=== PATIENT | female | born 1990 | race African-American/Black ===

== ENCOUNTER 2019-09-14 19:44 | Emergency (ER) | payer SELFPAY, OTHER ==
[2019-09-14 22:31] LABS: Protime INR 0.98
[2019-09-14 22:44] LABS: Hematocrit 27.5 % (36.0-45.0); RBC Red Blood Cell Count 4.45 M/uL (3.86-4.86)
[2019-09-14 22:51] LABS: ALT/SGPT 23 U/L (12-78); AST/SGOT 24 U/L (15-37); Albumin 3.7 g/dL (3.4-5.0); Alkaline Phosphatase 101 U/L (45-117); BUN Blood Urea Nitrogen 8 mg/dL (7-18); Bicarbonate 24 mmol/L (21-32); Bilirubin Direct < 0.1 mg/dL (0-0.2); Bilirubin Total 0.4 mg/dL (0.2-1.0); Glucose Level 88 mg/dL (74-106); NT PRO-BNP 43 pg/mL (<125); Potassium 3.5 mmol/L (3.5-5.1); Protein, Total 8.6 g/dL (6.4-8.2); Sodium Level 141 mmol/L (136-145)
[2019-09-15 01:12] LABS: Anisocytosis 2+; Blood Morphology Comment NOTED (NOT SEEN); Hypochromasia 2+; Ovalocytes 2+; Platelet Estimate ADEQ
--- NOTE | 2019-09-15 08:26 | RAD REPORT ---
EXAM DESCRIPTION: RAD - Chest Single View - 09/14/2019 11:01 pm CLINICAL HISTORY: CHEST PAIN Chest pain. COMPARISON: CHEST PA AND LAT 2 VIEW dated 01/25/2011 FINDINGS: Portable technique limits examination quality. The lungs are grossly clear. The heart is normal in size. No displaced fractures. IMPRESSION: No acute intrathoracic process suspected.
--- NOTE | 2019-09-15 10:33 | ER ---
Nurse's Notes [facility] Name: Pauline Martin Age: 29 yrs Sex: Female : 1990 Arrival Date: 09/14/2019 Time: 19:50 Bed 15 Private MD: Diagnosis: Chest pain, unspecified Presentation: 09/13 19:56 Chief complaint: Patient states: Chest pressure and tightness since this afternoon. ca1 Denies cough. Denies fever. Reports a little SOB. Denies nausea and abdl pain. Reports diarrhea. States, "my co-worker tested positive so I want to be tested". Coronavirus screen: Patient denies a cough. Patient reports shortness of breath or difficulty breathing. Patient denies measured and/or subjective temperature greater than 100.4F prior to today's visit. Patient denies travel on a cruise ship or to a country the [facility] currently lists as an affected area. Patient reports contact with known and/or suspected case of COVID-19. Co-worker tested positive Put mask on. Instructed to keep mask at all times and to keep 6ft away from other people in the lobby. Pt verbalized understanding to instructions. Ebola Screen: Patient negative for fever greater than or equal to 101.5 degrees Fahrenheit, and additional compatible Ebola Virus Disease symptoms Patient denies exposure to infectious person. Patient denies travel to an Ebola-affected area in the 21 days before illness onset. No symptoms or risks identified at this time. Initial Sepsis Screen: Does the patient meet any 2 criteria? No. Patient's initial sepsis screen is negative. Does the patient have a suspected source of infection? No. Patient's initial sepsis screen is negative. Risk Assessment: Do you want to hurt yourself or someone else? Patient reports no desire to harm self or others. Onset of symptoms was September 14, 2019. 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 - Social history:: Smoking status: Patient denies any tobacco usage or history of. Screenin:51 Abuse screen: Denies threats or abuse. Nutritional screening: No deficits noted. jd3 Tuberculosis screening: No symptoms or risk factors identified. Fall Risk Ambulatory Aid- None/Bed Rest/Nurse Assist (0 pts). Gait- Normal/Bed Rest/Wheelchair (0 pts) Mental Status- Oriented to own ability (0 pts). Total Alarcon Fall Scale indicates No Risk (0-24 pts). Assessment: 21:15 General: Appears in no apparent distress. uncomfortable, Behavior is calm, cooperative, jd3 appropriate for age. Pain: Complains of pain in chest Pain does not radiate. Quality of pain is described as pressure, Pain began gradually. Neuro: Level of Consciousness is awake, alert, obeys commands, Oriented to person, place, time, situation. Cardiovascular: Reports chest pressure Capillary refill < 3 seconds Patient's skin is warm and dry. Rhythm is regular. Respiratory: Reports shortness of breath at rest Airway is patent Respiratory effort is even, unlabored, Respiratory pattern is regular, symmetrical, Denies cough. GI: No signs and/or symptoms were reported involving the gastrointestinal system. : No signs and/or symptoms were reported regarding the genitourinary system. EENT: No signs and/or symptoms were reported regarding the EENT system. Derm: Skin is intact, Skin is dry, Skin is normal, Skin temperature is warm. Musculoskeletal: Circulation, motion, and sensation intact. Range of motion: intact in all extremities. 22:00 Reassessment: Patient appears in no apparent distress at this time. No changes from jd3 previously documented assessment. Patient and/or family updated on plan of care and expected duration. Pain level reassessed. Patient is alert, oriented x 3, equal unlabored respirations, skin warm/dry/pink. 23:08 Reassessment: Patient appears in no apparent distress at this time. No changes from jd3 previously documented assessment. Patient and/or family updated on plan of care and expected duration. Pain level reassessed. Patient is alert, oriented x 3, equal unlabored respirations, skin warm/dry/pink. 09/14 01:00 Reassessment: Patient appears in no apparent distress at this time. Patient and/or [facility] family updated on plan of care and expected duration. Pain level reassessed. Patient is alert, oriented x 3, equal unlabored respirations, skin warm/dry/pink. awaiting disposition. 01:37 Reassessment: Patient appears in no apparent distress at this time. Patient and/or jd3 family updated on plan of care and expected duration. Pain level reassessed. Patient is alert, oriented x 3, equal unlabored respirations, skin warm/dry/pink. Patient states feeling better. Vital Signs: 09/13 19:56 BP 123 / 81; Pulse 79; Resp 16 S; Temp 97.4(O); Pulse Ox 100% on R/A; Weight 86.18 kg ca1 (R); Height 5 ft. 4 in. (162.56 cm) (R); Pain 0/10; 23:08 BP 133 / 94; Pulse 75; Resp 21 S; Pulse Ox 100% on R/A; jd3 23:51 BP 124 / 91; Pulse 71; Resp 20 S; Pulse Ox 100% on R/A; jd3 09/14 01:00 BP 121 / 91; Pulse 73; Resp 20 S; Pulse Ox 100% on R/A; jd3 01:37 BP 117 / 90; Pulse 70; Resp 16 S; Pulse Ox 100% on R/A; jd3 09/13 19:56 Body Mass Index 32.61 (86.18 kg, 162.56 cm) ca1 ED Course: 09/13 19:50 Patient arrived in ED. ag3 19:59 Triage completed. ca1 20:00 Arm band placed on right wrist. ca1 21:13 Renzo Diaz RN is Primary Nurse. jd3 21:13 Mann Grimaldo PA is PHCP. [facility] 21:13 Cesar Dinh MD is Attending Physician. jm 21:30 Missed attempt(s): 20 gauge in right antecubital area. Bleeding controlled, band aid jd3 applied, catheter tip intact. 23:51 Patient has correct armband on for positive identification. Bed in low position. Call jd3 light in reach. Side rails up X 1. Adult w/ patient. ekg monitor tech on. Pulse ox on. NIBP on. 23:51 Patient maintains SpO2 saturation greater than 95% on room air. jd3 09/14 01:38 No provider procedures requiring assistance completed. Patient did not have IV access jd3 during this emergency room visit. Administered Medications: No medications were administered Outcome: 01:03 Discharge ordered by . june 01:38 Discharged to home ambulatory, with family. jlyndon 01:38 Condition: stable 01:38 Discharge instructions given to patient, family, Instructed on discharge instructions, follow up and referral plans. Demonstrated understanding of instructions, follow-up care. 01:38 Patient left the ED. jd3 Addendum: 09/17/2019 11:53 Addendum: Other attempted to contact pt regarding negative COVID-19 swab results. d m5 Received message that number has been changed or disconnected. Will attempt work number provided. 11:55 Addendum: Other Unable to reach pt with work number provided. d m5 Signatures: Kay Caldwell, RN RN dm5 Mann Grimaldo PA PA jmm Davies, Jonathon, RN RN jd3 Amada Heart3 Mahnaz Rosenberg RN RN ca1 Corrections: (The following items were deleted from the chart) 09/13 20:10 19:56 Pulse 79bpm; Resp 16bpm; Spontaneous; Pulse Ox 100% RA; Temp 97.4F Oral; 86.18 kg ca1 Reported; Height 5 ft. 4 in. Reported; BMI: 32.6; Pain 0/10; ca1 20:15 19:56 Coronavirus screen: Patient denies a cough. Patient reports shortness of breath ca1 or difficulty breathing. Patient denies measured and/or subjective temperature greater than 100.4F prior to today's visit. Patient denies travel on a cruise ship or to a country the [facility] currently lists as an affected area. Patient reports contact with known and/or suspected case of COVID-19. Co-worker tested positive ca1
--- NOTE | 2019-09-15 10:33 | EDPHYS ---
Physician Documentation [facility] Name: Pauline Martin Age: 29 yrs Sex: Female : 1990 Arrival Date: 09/14/2019 Time: 19:50 Bed 15 Private MD: ED Physician Cesar Dinh HPI: 09/13 21:14 This 29 yrs old Female presents to ER via Ambulatory with complaints of Chest Tightness.[facility] 21:14 The patient or guardian reports chest pain that is located primarily in the anterior [facility] chest wall, right. The pain does not radiate. Associated signs and symptoms: Pertinent positives: shortness of breath. The chest pain is described as a pressure. Duration: The patient or guardian reports a single episode, that is still ongoing, but improving. Modifying factors: The symptoms are alleviated by nothing. the symptoms are aggravated by nothing. This is a 29 year old female with no chronic medical conditions that presents to the ED with complaints of right sided chest pain beginning earlier today. Also complains of shortness of breath, denies fever. . 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 - Social history:: Smoking status: Patient denies any tobacco usage or history of. ROS: 21:14 Constitutional: Negative for fever, chills, and weight loss. [facility] 21:14 Constitutional: Positive for 21:14 Cardiovascular: Positive for chest pain. 21:14 Respiratory: Positive for shortness of breath. 21:14 All other systems are negative. 21:14 All other systems are negative. Exam: 21:14 Constitutional: This is a well developed, well nourished patient who is awake, alert, jmm and in no acute distress. Head/Face: atraumatic. Eyes: EOMI, no conjunctival erythema appreciated ENT: Moist Mucus Membranes Neck: Trachea midline, Supple Chest/axilla: Normal chest wall appearance and motion. Cardiovascular: Regular rate and rhythm. No edema appreciated Respiratory: Normal respirations, no respiratory distress appreciated Abdomen/GI: Non distended, soft Back: Normal ROM Skin: General appearance color normal MS/ Extremity: Moves all extremities, no obvious deformities appreciated, no edema noted to the lower extremities Neuro: Awake and alert, normal gait Psych: Behavior is normal, Mood is normal, Patient is cooperative and pleasant 21:14 Respiratory: the patient does not display signs of respiratory distress, Respirations: normal, Breath sounds: are clear throughout. Vital Signs: 19:56 BP 123 / 81; Pulse 79; Resp 16 S; Temp 97.4(O); Pulse Ox 100% on R/A; Weight 86.18 kg ca1 (R); Height 5 ft. 4 in. (162.56 cm) (R); Pain 0/10; 23:08 BP 133 / 94; Pulse 75; Resp 21 S; Pulse Ox 100% on R/A; jd3 23:51 BP 124 / 91; Pulse 71; Resp 20 S; Pulse Ox 100% on R/A; jd3 09/14 01:00 BP 121 / 91; Pulse 73; Resp 20 S; Pulse Ox 100% on R/A; jd3 01:37 BP 117 / 90; Pulse 70; Resp 16 S; Pulse Ox 100% on R/A; jd3 09/13 19:56 Body Mass Index 32.61 (86.18 kg, 162.56 cm) ca1 MDM: 09/13 21:14 Patient medically screened. [facility] 09/14 01:02 Data reviewed: vital signs, nurses notes, lab test result(s), EKG, radiologic studies, [facility] plain films. ED course: Heart score = 1. D-Dimer negative. Patient is advised to follow up with pcp and otherwise given strict return precautions. Patient understood and agrees with the plan of care. . 09/14 01:05 Order name: Basic Metabolic Panel; Complete Time: 01:15 [facility] 09/14 01:05 Order name: Liver (Hepatic) Function; Complete Time: :15 [facility] 09/14 01:05 Order name: NT PRO-BNP; Complete Time: :15 [facility] 09/14 01:05 Order name: Magnesium; Complete Time: 01:15 [facility] 09/14 01:05 Order name: CBC with Automated Diff; Complete Time: 01:15 [facility] 09/13 20:01 Order name: EKG - Nurse/Tech; Complete Time: 20:[address] [facility] 09/13 21:14 Order name: Cardiac monitoring; Complete Time: 21:39 [facility] 09/13 21:14 Order name: Labs collected and sent; Complete Time: 22:11 [facility] 09/13 21:14 Order name: O2 Per Protocol; Complete Time: 21:39 [facility] 09/13 21:14 Order name: O2 Sat Monitoring; Complete Time: 21:39 [facility] 09/14 01:05 Order name: Protime (+INR); Complete Time: 01:15 [facility] 09/14 01:05 Order name: D-Dimer; Complete Time: 01:15 [facility] 09/14 01:12 Order name: Manual Differential; Complete Time: 01:15 [facility] Administered Medications: No medications were administered Disposition: 06:28 Co-signature as Attending Physician, Cesar Dinh MD I agree with the assessment and mike plan of care. Disposition: 09/15/19 01:03 Discharged to Home. Impression: Chest pain, unspecified. - Condition is Stable. - Discharge Instructions: Nonspecific Chest Pain. - Medication Reconciliation Form, Thank You Letter, Antibiotic Education, Prescription Opioid Use form. - Follow up: Private Physician; When: 2 - 3 days; Reason: Recheck today's complaints, Continuance of care, Re-evaluation by your physician. Signatures: Dispatcher [employer] Cesar Mata MD MD cha Mickail, Joel, PA PA jmm Davies, Jonathon, RN RN jMahnaz Menjivar RN RN ca1 Corrections: (The following items were deleted from the chart) 01:38 01:03 09/15/2019 01:03 Discharged to Home. Impression: Chest pain, unspecified. jd3 Condition is Stable. Forms are Medication Reconciliation Form, Thank You Letter, Antibiotic Education, Prescription Opioid Use. Follow up: Private Physician; When: 2 - 3 days; Reason: Recheck today's complaints, Continuance of care, Re-evaluation by your physician. [facility]
--- NOTE | 2019-09-15 12:24 | EKG ---
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
[2019-09-15 14:54] VITALS: TEMP 97.4; O2SAT 100
[2019-09-15 15:05] VITALS: BP 117/90
== END 2019-09-15 01:38 | disposition home or self-care (01) ==
LOC: ER 19:44
DX: R07.9 Chest pain, unspecified (principal)
CPT/HCPCS: 36415; 71045; 80048; 80076; 83735; 83880; 85025; 85379; 85610; 93005; 99284; U0001

== ENCOUNTER 2020-01-10 22:37 | Emergency (ER) | payer SELFPAY, OTHER ==
[2020-01-10 23:27] LABS: Urine Blood 2+ (NEG); Urine Glucose NEGATIVE (NEG); Urine Protein 1+ (NEG); Urine Specific Gravity >1.030 (1.005-1.030); Urine pH 6.5 (5.0-7.0)
[2020-01-10 23:30] LABS: Urine Bacteria <20 /HPF (<20); Urine Culture Reflex Order NOT NEEDED
--- NOTE | 2020-01-10 23:55 | EDPHYS ---
Physician Documentation [facility] Name: Pauline Martin Age: 30 yrs Sex: Female : 1990 Arrival Date: 01/10/2020 Time: 22:40 Bed 18 Private MD: ED Physician Jake Youssef HPI: 01/09 23:49 This 30 yrs old Black Female presents to ER via Ambulatory with complaints of UTI. pkl 23:49 The patient presents with urinary symptoms, dysuria, frequency. Onset: The pkl symptoms/episode began/occurred 4 day(s) ago. Patient said she did online consultation and was prescribed Nitrofurantoin. Patient said she is feeling worse today. 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 - Social history:: Smoking status: Patient/guardian denies using. ROS: 23:49 Positive for urinary symptoms, urinary frequency, burning with urination. pkl 23:49 Eyes: Negative for injury, pain, redness, and discharge, ENT: Negative for injury, pain, and discharge, Neck: Negative for injury, pain, and swelling, Cardiovascular: Negative for chest pain, palpitations, and edema, Respiratory: Negative for shortness of breath, cough, wheezing, and pleuritic chest pain, Abdomen/GI: Negative for abdominal pain, nausea, vomiting, diarrhea, and constipation, Back: Negative for injury and pain. 23:49 MS/extremity: Negative for acute changes. 23:49 Skin: Negative for rash. 23:49 Neuro: Negative for altered mental status, loss of consciousness. Exam: 23:49 Head/Face: Normocephalic, atraumatic. Eyes: Pupils equal round and reactive to light, pkl extra-ocular motions intact. Lids and lashes normal. Conjunctiva and sclera are non-icteric and not injected. Cornea within normal limits. Periorbital areas with no swelling, redness, or edema. ENT: Nares patent. No nasal discharge, no septal abnormalities noted. Tympanic membranes are normal and external auditory canals are clear. Oropharynx with no redness, swelling, or masses, exudates, or evidence of obstruction, uvula midline. Mucous membranes moist. Neck: Trachea midline, no thyromegaly or masses palpated, and no cervical lymphadenopathy. Supple, full range of motion without nuchal rigidity, or vertebral point tenderness. No Meningismus. Chest/axilla: Normal chest wall appearance and motion. Nontender with no deformity. No lesions are appreciated. Cardiovascular: Regular rate and rhythm with a normal S1 and S2. No gallops, murmurs, or rubs. Normal PMI, no JVD. No pulse deficits. Respiratory: Lungs have equal breath sounds bilaterally, clear to auscultation and percussion. No rales, rhonchi or wheezes noted. No increased work of breathing, no retractions or nasal flaring. Abdomen/GI: Soft, non-tender, with normal bowel sounds. No distension or tympany. No guarding or rebound. No evidence of tenderness throughout. Back: No spinal tenderness. No costovertebral tenderness. Full range of motion. Skin: Warm, dry with normal turgor. Normal color with no rashes, no lesions, and no evidence of cellulitis. MS/ Extremity: Pulses equal, no cyanosis. Neurovascular intact. Full, normal range of motion. Neuro: Awake and alert, GCS 15, oriented to person, place, time, and situation. Cranial nerves II-XII grossly intact. Motor strength 5/5 in all extremities. Sensory grossly intact. Cerebellar exam normal. Normal gait. Vital Signs: 22:50 BP 126 / 72; Pulse 88; Resp 18; Temp 99.3; Pulse Ox 100% on R/A; Weight 90.72 kg; jv1 Height 5 ft. 4 in. (162.56 cm); Pain 2/10; 22:50 BP 126 / 72; Pulse 88; Resp 18; Temp 99.3; Pulse Ox 100% on R/A; Pain 2/10; jv1 01/10 00:03 BP 123 / 79; Pulse 85; Resp 18; Temp 98.9; Pulse Ox 100% ; Pain 0/10; jv1 01/09 22:50 Body Mass Index 34.33 (90.72 kg, 162.56 cm) jv1 MDM: 01/09 22:46 Patient medically screened. [facility] 23:49 Data reviewed: vital signs, nurses notes. [facility] 01/09 23:03 Order name: Urine Microscopic Only; Complete Time: 23:47 ds4 01/09 23:05 Order name: Urine Dipstick--Ancillary (enter results); Complete Time: 23:47 ds4 01/09 23:05 Order name: Urine --Ancillary (enter results); Complete Time: 23:47 ds4 Administered Medications: 01/10 00:00 Drug: Cipro 500 mg Route: PO; jv1 00:09 Follow up: Response: No adverse reaction jv1 00:00 Drug: Pyridium 200 mg Route: PO; jv1 00:09 Follow up: Response: No adverse reaction jv1 Disposition: 01/10/20 23:54 Discharged to Home. Impression: Cystitis. - Condition is Stable. - Prescriptions for Pyridium 200 mg Oral Tablet - take 1 tablet by ORAL route every 8 hours for 2 days; 6 tablet. Cipro 500 mg Oral Tablet - take 1 tablet by ORAL route every 12 hours for 7 days; 14 tablet. - Medication Reconciliation Form, Thank You Letter, Antibiotic Education, Prescription Opioid Use form. - Follow up: Private Physician; When: 1 week; Reason: Re-evaluation by your physician. - Problem is new. - Symptoms are unchanged. Signatures: Dispatcher [employer] EDMS Jake Youssef MD MD pkl Ashley Goodman RN RN jv1 Corrections: (The following items were deleted from the chart) 00:10 01/09 23:54 01/10/2020 23:54 Discharged to Home. Impression: Cystitis. Condition is jv1 Stable. Forms are Medication Reconciliation Form, Thank You Letter, Antibiotic Education, Prescription Opioid Use. Follow up: Private Physician; When: 1 week; Reason: Re-evaluation by your physician. Problem is new. Symptoms are unchanged. pkl
--- NOTE | 2020-01-10 23:55 | ER ---
Nurse's Notes [facility] Name: Pauline Martin Age: 30 yrs Sex: Female : 1990 Arrival Date: 01/10/2020 Time: 22:40 Bed 18 Private MD: Diagnosis: Cystitis Presentation: 01/09 22:50 Coronavirus screen: Client denies travel out of the [place] in the last 14 days. At this jv1 time, the client does not indicate any symptoms associated with coronavirus-19. Client reports previous positive COVID test result. Date of collection: October 15, 2019 in [place]. Ebola Screen: No symptoms or risks identified at this time. Initial Sepsis Screen: Does the patient meet any 2 criteria? No. Patient's initial sepsis screen is negative. Does the patient have a suspected source of infection? Yes: Dysuria/Frequency/Urgency/UTI. Risk Assessment: Do you want to hurt yourself or someone else? Patient reports no desire to harm self or others. Onset of symptoms was January 08, 2020. 22:50 Method Of Arrival: Ambulatory jv1 22:50 Acuity: ELSA 3 jv1 23:19 Chief complaint: Patient states: pt stated she has UTI. She did online consultation and jv1 was prescribed Nitrofurantoin [place] 100mg/cap, 1 cap BID x 5 days. She is already on her 2nd day but still no improvement. 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 - Social history:: Smoking status: Patient/guardian denies using. Screenin:50 Abuse screen: Denies threats or abuse. Nutritional screening: No deficits noted. jv1 Tuberculosis screening: No symptoms or risk factors identified. Fall Risk None identified. Assessment: 22:50 General: Appears in no apparent distress. comfortable, well groomed, Behavior is calm, jv1 cooperative, appropriate for age. Pain: Denies pain. Neuro: Level of Consciousness is awake, alert, obeys commands, Oriented to person, place, time, situation, Appropriate for age [place]vertine Installer are equal bilaterally Moves all extremities. Cardiovascular: Denies chest pain, Heart tones S1 S2 Capillary refill < 3 seconds Pulses are all present. Respiratory: Airway is patent Respiratory effort is even, unlabored, Respiratory pattern is regular, symmetrical. GI: Abdomen is round non-distended, Bowel sounds present X 4 quads. Abd is soft and non tender X 4 quads. : Reports burning with urination, since January 08, 2020 urinary frequency. EENT: No signs and/or symptoms were reported regarding the EENT system. Derm: No signs and/or symptoms reported regarding the dermatologic system. Skin is intact, is healthy with good turgor. Musculoskeletal: No signs and/or symptoms reported regarding the musculoskeletal system. Capillary refill < 3 seconds, Range of motion: intact in all extremities. 23:46 Reassessment: Patient appears in no apparent distress at this time. No changes from jv1 previously documented assessment. Patient and/or family updated on plan of care and expected duration. Pain level reassessed. Patient is alert, oriented x 3, equal unlabored respirations, skin warm/dry/pink. Dr. Youssef in the room with pt. 01/10 00:00 Reassessment: Patient appears in no apparent distress at this time. No changes from jv1 previously documented assessment. Patient and/or family updated on plan of care and expected duration. Pain level reassessed. Patient is alert, oriented x 3, equal unlabored respirations, skin warm/dry/pink. Vital Signs: 01/09 22:50 BP 126 / 72; Pulse 88; Resp 18; Temp 99.3; Pulse Ox 100% on R/A; Weight 90.72 kg; jv1 Height 5 ft. 4 in. (162.56 cm); Pain 2/10; 22:50 BP 126 / 72; Pulse 88; Resp 18; Temp 99.3; Pulse Ox 100% on R/A; Pain 2/10; jv1 01/10 00:03 BP 123 / 79; Pulse 85; Resp 18; Temp 98.9; Pulse Ox 100% ; Pain 0/10; jv1 01/09 22:50 Body Mass Index 34.33 (90.72 kg, 162.56 cm) jv1 ED Course: 01/09 22:40 Patient arrived in ED. bp1 22:46 Jake Youssef MD is Attending Physician. pkl 22:50 Arm band placed on right wrist. jv1 22:50 Bed in low position. Call light in reach. Side rails up X 1. jv1 23:26 Triage completed. jv1 01/10 00:03 No provider procedures requiring assistance completed. Patient did not have IV access jv1 during this emergency room visit. Administered Medications: 00:00 Drug: Cipro 500 mg Route: PO; jv1 00:09 Follow up: Response: No adverse reaction jv1 00:00 Drug: Pyridium 200 mg Route: PO; jv1 00:09 Follow up: Response: No adverse reaction jv1 Outcome: 01/09 23:54 Discharge ordered by . spencer 01/10 00:04 Discharged to home ambulatory. jv1 Condition: stable Discharge instructions given to patient, Instructed on discharge instructions, follow up and referral plans. medication usage, Demonstrated understanding of instructions, follow-up care, medications, Prescriptions given X 2. 00:10 Patient left the ED. jv1 Signatures: Jake Youssef MD MD pkl Vicente, Joyce, RN RN jv1 Jade So
[2020-01-11] MEDS ORDERED: PHENAZOPYRIDINE 100MG TAB PO ONE (00:09)
[2020-01-11] MEDS ORDERED: CIPROFLOXACIN HCL 500 MG TAB ONE (00:10)
[2020-01-11 01:19] VITALS: O2SAT 100
[2020-01-11 01:21] VITALS: BP 123/79; TEMP 98.9
== END 2020-01-11 00:10 | disposition home or self-care (01) ==
LOC: ER 22:37
DX: N30.90 Cystitis, unspecified without hematuria (principal)
CPT/HCPCS: 81003; 81015; 81025; 99283

== ENCOUNTER 2021-08-19 07:36 | Emergency (ER) | payer BC, OTHER, SELFPAY ==
--- OUTSIDE RECORDS SUMMARY | 2021-08-19 07:39 | XMS REPORT | Continuity of Care Document ---
:[address] [facility] t Address [address] [place] [address] Care Team Providers Name Role Phone PCP, DOES NOT HAVE A Primary Care Physician Unavailable FLASH ACEVEDO Attending Clinician Unavailable KATIE Attending Clinician Unavailable Katie NAPIER Attending Clinician Flash Acevedo MD Attending Clinician Kalie, Nicola Poángel I Attending Clinician Unavailable Anene CRM SOLUTION ARCHITECT Attending Clinician ANENE Attending Clinician Unavailable Payers Payer Name Policy Type Policy Number Effective Date Expiration Date S [facility] - [id number] 2020 00:00:00 OUT OF STATE Problems Condition Condition Condition Status Onset Resolution Last Treating Co mments Source Name Details Category Date Date Treatment Clinician Date Obesity in Obesity in Disease Active U nivers 4-21 ity of 00:00: [address] Branch Anemia of Anemia of Disease Active Uni vers mother in mother in 4-21 [place]y [place] , [place] ante[place] antepartum [address] [facility] Branch High risk High risk Disease Active Uni vers , , 4-21 [place] y of [place] 00 [facility] Thrombocyt Thrombocyt Disease Active U nivers hemia hemia 4-21 ity of 00:00: [place] [address] [facility] Obesity Obesity Disease Active Univers (BMI (BMI 2-06 ity of 30-39.9) 30-39.9) 00:00: [place] [address] [facility] Allergies, Adverse Reactions, Alerts Allergy Allergy Status Severity Reaction(s) Onset Inactive Treating Comm ents Source Name Type Date Date Clinician NO KNOWN Drug Active Univers ALLERGIE Class ity of S [facility] Social History Social Habit Start Date Stop Date Quantity Comments Source ASSERTION 2021-06-04 [facility] 00:00:00 [facility] Exposure to 2021-08-03 2021-08-13 Not sure [facility] SARS-CoV-2 00:00:00 16:01:00 [facility] (event) [place] Alcohol intake 2021-07-25 2021-07-25 Ex-drinker [facility] 00:00:00 00:00:00 (finding) [facility] Tobacco use and 2020-09-20 2020-09-20 Never used Universit y of exposure 00:00:00 00:00:00 [facility] Sex [birth year] Universit y of 00:00:00 00:00:00 [facility] Smoking Status Start Date Stop Date Source Unknown if ever smoked [facility] Never smoker [facility] Medications Ordered Filled Start Stop Current Ordering Indication Dosage Frequency Signature Comments Components Source Medication Medication Date Date Medication? Clinician (SIG) Name Name ferrous Yes Take by [facility] s sulfate 08-13 mouth. ity of (IRON ORAL) 16:27: [place] [facility] Blood-Gluco Yes Check [employer] se Meter 04 blood ity of Kit 00:00: glucose [place] 00 four times Medical a day. Branch blood sugar Yes Check Unive rs diagnostic 04 blood ity of (BLOOD 00:00: glucose [place] GLUCOSE 00 four times Medica l TEST) strip a day. Branch Alcohol Yes Apply to [employer] [facility] Swabs PadM 04 area(s) 4 ity of 00:00: (four) [place] 00 times Medical daily. Branch [facility]ets [facility] of 00:00: blood [place] 00 glucose Medical levels 4 x Branch per day. ascorbic 2021- Yes [id number] 500mg Take 1 Univers acid, 4-15 07-15 tablet by ity of vitamin C, 00:00: 04:59 mouth 2 Vijay as 500 mg 00 :00 (two) Medical tablet times Branch daily for 90 days. ascorbic 2021- Yes [id number] 500mg Take 1 Univers acid, 4-15 07-15 tablet by ity of vitamin C, 00:00: 04:59 mouth 2 Vijay as 500 mg 00 :00 (two) Medical tablet times Branch daily for 90 days. ferrous 2021- No [id number] 325mg Take 1 U nivers sulfate 4-15 05-16 tablet by ity of (IRON, 00:00: 04:59 mouth 2 [place] FERROUS 00 :00 (two) Medical SULFATE,) times Branch 325 mg (65 daily for mg iron) 30 days. tablet PNV Comb Yes [id number] 1{tbl} Take 1 Univers #2-Iron-FA- 4-05 tablet by ity of [place] 3 29 00:00: mouth [place] mg iron-1 00 daily. Medical mg -430 mg Branch Cmpk PNV Comb Yes [id number] 1{tbl} Take 1 Univers #2-Iron-FA- 4-05 tablet by ity of [place] 3 29 00:00: mouth [place] mg iron-1 00 daily. Medical mg -430 mg Branch Cmpk Immunizations Ordered Filled Immunization Date Status Comments [facility] e Immunization Name Name Influenza Virus 2021-07-12 Completed Universit y of Vaccine Quad IM, 00:00:00 [place] Me dical Preserv and ABX Branch Free 6 MO-64 YRS Influenza Virus 2021-07-12 Completed Universit y of Vaccine Quad IM, 00:00:00 [place] Me dical Preserv and ABX Branch Free 6 MO-64 YRS Vital Signs Vital Name Observation Time Observation Value Comments Source Systolic blood 2021-08-13 21:26:00 108 mm[Hg] Univer sity of pressure [facility] Diastolic blood 2021-08-13 21:26:00 73 mm[Hg] [facility] Heart rate 2021-08-13 21:26:00 78 /min Universi ty of [facility] Body temperature 2021-08-13 21:26:00 37.28 Ayleen [facility] Body height 2021-08-13 21:26:00 162.6 cm [facility] Body weight 2021-08-13 21:26:00 97.705 kg [facility] BMI 2021-08-13 21:26:00 36.97 kg/m2 [facility] Systolic blood 2021-07-12 19:54:00 107 mm[Hg] [facility] Diastolic blood 2021-07-12 19:54:00 71 mm[Hg] [facility] 2021-07-12 19:54:00 67 /min [facility] Body temperature 2021-07-12 19:54:00 37 Ayleen [facility] Body height 2021-07-12 19:54:00 162.6 cm [facility] Body weight 2021-07-12 19:54:00 98.612 kg [facility] BMI 2021-07-12 19:54:00 37.32 kg/m2 [facility] Procedures Procedure Date / Time Performed Performing Clinician Sourc e POCT URINALYSIS W/O 2021-08-13 00:00:00 Kathy Hernandez [facility] FLU VACC ([id number]), 2021-07-12 19:55:47 Igor Acevedo [facility] 2-64 YRS, .5ML, IM, Medical Bran ch QUAD (FLUCELVAX) POCT URINALYSIS W/O 2021-07-12 00:00:00 Igor Acevedo [facility] Encounters Start End Encounter Admission Attending Care Care Encounter Source Date/Time Date/Time Type Type Clinicians Facility Department ID 2021-04-25 Outpatient LIVST LIVST [id number] [facility] 08:48:45 -[id number] [facility] [place] 2021-09-10 2021-09-10 Outpatient R IGOR ACEVEDO [facility] [id number] Univers 13:45:00 13:45:[id number] 2021-09-10 2021-09-10 Outpatient R IGOR ACEVEDO [facility] [id number] Univers 13:45:00 13:45:00 ity of [facility] 2021-08-22 2021-08-22 Outpatient R [facility] [id number] Univers 10:30:00 10:30:00 [id number] ity of [facility] 2021-08-22 2021-08-22 Outpatient P [facility] [id number] Univers 10:30:00 10:30:00 ity of [facility] 2021-08-13 2021-08-13 Outpatient R KATIE [facility] [id number] Univers 16:00:00 16:37:38 [facility] 2021-08-13 2021-08-13 [id number] Univers 16:00:00 16:37:38 Kathy GILBERT [id number] ity of Visit [id number] PROF[place] [id number] [place] dical NAL [address] [place] [address] 2021-07-12 2021-07-12 Office Igor Acevedo [facility] [id number] Univers 14:30:00 15:45:39 Visit Flash GILBERT [id number] i ty of [id number] [id number] [place] dical NAL [address] [place] [address] 2020-09-08 2020-09-08 Outpatient IGOR ACEVEDO [facility] [id number] Univers 13:00:00 13:00:00 [id number] ity of [facility] 2020-09-08 2020-09-08 Outpatient R IGOR ACEVEDO [facility] [id number] Univers 13:00:00 13:00:00 ity [facility] 2019-10-07 2019-10-07 Laboratory Lab, Adc Fam Pob I [facility] [id number] Univers 17:40:00 18:00:00 Only Chely Apodaca [id number] ity of [place] [id number] Vijay Dior [id number] [place] dical [address] Office [address] 2019-10-07 2019-10-07 Outpatient R IRA [facility] [id number] Univers 17:40:00 17:40:00 CHELY sandoval [facility] Results Test Description Test Time Test Comments Results Result Comments Source POCT URINALYSIS W/O SPECIFIC GRAVITY 2021-08-13 21:23:00 Test Item Value Reference Range Interpretation Comme nts POCT PH U (test code = 3254) n/a 5-8 POCT U LEUK EST (test code = 3263) n/a Negative - Negative POCT U NIT (test code = 3262) n/a Negative - Negative POCT U PROT (test code = 3259) Negative Negative - Negative POCT U GLU (test code = 3256) Normal Negative - Negative POCT U KETONE (test code = 3258) n/a Negative - Negative POCT U BLD (test code = 3257) n/a Negative - Negative [facility] SPECIFIC [id number] 19:52:00 Test Item Value Reference Range Interpretation Comments POCT PH U (test code = 3254) n/a 5-8 POCT U LEUK EST (test code = n/a Negative - Negative 3263) POCT U NIT (test code = 3262) n/a Negative - Negative POCT U PROT (test code = 3259) Negative Negative - Negative POCT U GLU (test code = 3256) normal Negative - Negative POCT U KETONE (test code = 3258) n/a Negative - Negative POCT U BLD (test code = 3257) n/a Negative - Negative [facility]
[2021-08-19 08:13] LABS: Urine Blood 3+ (Negative); Urine Glucose Negative (Negative); Urine Protein Trace (Negative); Urine pH 6.5 (5.0-7.0)
[2021-08-19 09:05] LABS: Potassium 3.6 mmol/L (3.5-5.1)
[2021-08-19 10:03] LABS: Absolute Lymphocytes (CBC) 1.4 K/uL (0.7-4.9); Hematocrit 34.5 % (36.0-45.0); Lymphocytes % 20.9 % (15.3-44.8); MPV 8.4 fL (7.6-11.3)
--- NOTE | 2021-08-19 10:44 | ER ---
Nurse's Notes [facility] Name: Pauline Martin Age: 31 yrs Sex: Female : 1990 Arrival Date: 08/19/2021 Time: 07:40 Bed 16 Private MD: Diagnosis: Threatened ;Abnormal uterine and vaginal bleeding, unspecified Presentation: 08/19 07:47 Chief complaint: Patient states: I'm 13 weeks , this morning around 7 am I iw wiped and there was blood, denies pain or cramping. see OB at [facility]. Coronavirus screen: At this time, the client does not indicate any symptoms associated with coronavirus-19. Ebola Screen: Patient negative for fever greater than or equal to 101.5 degrees Fahrenheit, and additional compatible Ebola Virus Disease symptoms Patient denies exposure to infectious person. Patient denies travel to an Ebola-affected area in the 21 days before illness onset. No symptoms or risks identified at this time. Initial Sepsis Screen: Does the patient meet any 2 criteria? No. Patient's initial sepsis screen is negative. Does the patient have a suspected source of infection? No. Patient's initial sepsis screen is negative. Risk Assessment: Do you want to hurt yourself or someone else? Patient reports no desire to harm self or others. Onset of symptoms was August 19, 2021. 07:47 Method Of Arrival: Ambulatory iw 07:47 Acuity: ELSA 3 iw Triage Assessment: 08:00 General: Appears in no apparent distress. comfortable, Behavior is cooperative, bp appropriate for age, anxious. Pain: Denies pain. EENT: No deficits noted. Neuro: No deficits noted. Cardiovascular: No deficits noted. Respiratory: No deficits noted. GI: No signs and/or symptoms were reported involving the gastrointestinal system. : Reports vaginal bleeding that is spotty. Derm: No deficits noted. Musculoskeletal: No deficits noted. 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 - Social history:: Smoking status: Patient denies any tobacco usage or history of. Screenin:00 Abuse screen: Denies threats or abuse. Denies injuries from another. Nutritional bp screening: No deficits noted. Tuberculosis screening: No symptoms or risk factors identified. Fall Risk None identified. Assessment: 08:00 General: SEE TRIAGE NOTE. bp 09:41 Reassessment: PHLEBOTOMY AT B/S FOR LAB DRAW. bp 10:52 Reassessment: PT D/C ON HOLD FOR U/S REPORT. : Urine is clear. bp Vital Signs: 07:47 BP 122 / 88; Pulse 100; Resp 16; Temp 97.9; Pulse Ox 100% on R/A; Weight 97.52 kg; iw Height 5 ft. 4 in. (162.56 cm); 09:40 BP 110 / 85; Pulse 85; Resp 19; Pulse Ox 100% ; bp 10:52 BP 118 / 87; Pulse 89; Resp 16; Pulse Ox 100% ; bp 07:47 Body Mass Index 36.90 (97.52 kg, 162.56 cm) ED Course: 07:40 Patient arrived in ED. am2 07:49 Triage completed. iw 07:49 Arm band placed on. iw 07:54 Bruce Dodd MD is Attending Physician. kdr 08:00 Garry Ordonez, RN is Primary Nurse. bp 08:00 Patient has correct armband on for positive identification. Bed in low position. Call bp light in reach. Side rails up X2. 10:53 No provider procedures requiring assistance completed. Patient did not have IV access bp during this emergency room visit. 11:12 US OB Limited In Process Unspecified. EDMS Administered Medications: No medications were administered Medication: 10:53 VIS not applicable for this client. bp Outcome: 10:43 Discharge ordered by . kdr 10:53 Discharged to home ambulatory. bp 10:53 Condition: stable 10:53 Discharge instructions given to patient, Instructed on discharge instructions, follow up and referral plans. Demonstrated understanding of instructions, follow-up care. 11:48 Patient left the ED. bp Signatures: Dispatcher [employer] EDMS Bruce Dodd MD MD kdr Kinjal Zazueta RN RN Allie Bello am2 Garry Ordonez, JASON RN bp Corrections: (The following items were deleted from the chart) 07:49 07:49 PSHx: None; iw iw 07:50 07:47 Chief complaint: Patient states: I'm 13 weeks , this morning around 7 am iw I wiped and there was blood, denies pain or cramping iw
--- NOTE | 2021-08-19 10:44 | EDPHYS ---
Physician Documentation [facility] Name: Pauline Martin Age: 31 yrs Sex: Female : 1990 Arrival Date: 08/19/2021 Time: 07:40 Bed 16 Private MD: ED Physician Bruce Dodd HPI: 08/19 16:24 This 31 yrs old Black Female presents to ER via Ambulatory with complaints of Vaginal kdr Bleeding - 13 wks preg. 16:25 Patient noted that around 7 AM this morning that she had some spotting and bleeding kdr when she went to the bathroom. She noted the blood on the paper. She states that she is about 13 weeks . She has been seen at [facility] for her obstetrics follow-up. She denies pain or cramping. She has not had this before. This is her first . She does not appear toxic in any way at time of initial presentation or at any time during her stay in the ED. Onset: The symptoms/episode began/occurred suddenly, this morning. Severity of symptoms: At their worst the symptoms were mild in the emergency department the symptoms are unchanged. The patient has not experienced similar symptoms in the past. 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 - Social history:: Smoking status: Patient denies any tobacco usage or history of. ROS: 16:25 Constitutional: Negative for fever, chills, and weight loss, Eyes: Negative for injury, kdr pain, redness, and discharge, Neck: Negative for injury, pain, and swelling, Cardiovascular: Negative for chest pain, palpitations, and edema, Respiratory: Negative for shortness of breath, cough, wheezing, and pleuritic chest pain, Abdomen/GI: Negative for abdominal pain, nausea, vomiting, diarrhea, and constipation, Back: Negative for injury and pain, MS/Extremity: Negative for injury and deformity, Skin: Negative for injury, rash, and discoloration, Neuro: Negative for headache, weakness, numbness, tingling, and seizure activity. Psych: Negative for depression, anxiety, suicide ideation, homicidal ideation, and hallucinations, Allergy/Immunology: Negative for hives, rash, and allergies, Endocrine: Negative for neck swelling, polydipsia, polyuria, polyphagia, and marked weight changes, Hematologic/Lymphatic: Negative for swollen nodes, abnormal bleeding, and unusual bruising. 16:25 : Positive for vaginal bleeding, Negative for urinary symptoms, urinary frequency, small amounts, hematuria, vaginal itching, menstrual abnormality. Exam: 16:25 Constitutional: This is a well developed, well nourished patient who is awake, alert, kdr and in no acute distress. Head/Face: Normocephalic, atraumatic. Eyes: Pupils equal round and reactive to light, extra-ocular motions intact. Lids and lashes normal. Conjunctiva and sclera are non-icteric and not injected. Cornea within normal limits. Periorbital areas with no swelling, redness, or edema. Neck: Trachea midline, no thyromegaly or masses palpated, and no cervical lymphadenopathy. Supple, full range of motion without nuchal rigidity, or vertebral point tenderness. No Meningismus. Chest/axilla: Normal chest wall appearance and motion. Nontender with no deformity. No lesions are appreciated. Cardiovascular: Regular rate and rhythm with a normal S1 and S2. No gallops, murmurs, or rubs. Normal PMI, no JVD. No pulse deficits. Respiratory: Lungs have equal breath sounds bilaterally, clear to auscultation and percussion. No rales, rhonchi or wheezes noted. No increased work of breathing, no retractions or nasal flaring. Abdomen/GI: Soft, non-tender, with normal bowel sounds. No distension or tympany. No guarding or rebound. No evidence of tenderness throughout. Back: No spinal tenderness. No costovertebral tenderness. Full range of motion. Skin: Warm, dry with normal turgor. Normal color with no rashes, no lesions, and no evidence of cellulitis. MS/ Extremity: Pulses equal, no cyanosis. Neurovascular intact. Full, normal range of motion. Neuro: Awake and alert, GCS 15, oriented to person, place, time, and situation. Cranial nerves II-XII grossly intact. Motor strength 5/5 in all extremities. Sensory grossly intact. Cerebellar exam normal. Normal gait. Psych: Awake, alert, with orientation to person, place and time. Behavior, mood, and affect are within normal limits. Vital Signs: 07:47 BP 122 / 88; Pulse 100; Resp 16; Temp 97.9; Pulse Ox 100% on R/A; Weight 97.52 kg; iw Height 5 ft. 4 in. (162.56 cm); 09:40 BP 110 / 85; Pulse 85; Resp 19; Pulse Ox 100% ; bp 10:52 BP 118 / 87; Pulse 89; Resp 16; Pulse Ox 100% ; bp 07:47 Body Mass Index 36.90 (97.52 kg, 162.56 cm) iw MDM: 10:43 Patient medically screened. kdr 16:25 Data reviewed: vital signs, nurses notes, lab test result(s), radiologic studies. kdr Counseling: I had a detailed discussion with the patient and/or guardian regarding: the historical points, exam findings, and any diagnostic results supporting the discharge/admit diagnosis, lab results, radiology results, the need for outpatient follow up. 08/19 07:55 Order name: Abo/rh Typing; Complete Time: 10:24 [facility] 08/19 07:55 Order name: Basic Metabolic Panel; Complete Time: 09:37 [facility] 08/19 07:55 Order name: CBC with Diff; Complete Time: 11:54 [facility] 08/19 07:55 Order name: Quantitative Hcg; Complete Time: 09:37 [facility] 08/19 08:13 Order name: Urine Dipstick-Ancillary; Complete Time: 08:34 [facility] 08/19 10:22 Order name: CBC Smear Scan; Complete Time: 11:54 [facility] 08/19 07:55 Order name: IV Saline Lock; Complete Time: 08:18 [facility] 08/19 07:55 Order name: Labs collected and sent; Complete Time: 08:18 [facility] 08/19 07:55 Order name: NPO; Complete Time: 08:17 kdr 08/19 07:55 Order name: Urine Dipstick-Ancillary (obtain specimen); Complete Time: 08:19 [facility] 08/19 07:55 Order name: US OB Limited; Complete Time: 11:54 [facility] 08/19 08:27 Order name: Labs - recollect needed: recollect aborh/ no date written on tube/ cut eb band/ ; Complete Time: :38 08/19 08:44 Order name: Labs - recollect needed: recollect purple top/ clotted; Complete Time: 09:38eb 08/19 10:51 Order name: ABO/RH no charge; Complete Time: 11:10 EDMS Administered Medications: No medications were administered Disposition Summary: 08/19/21 10:43 Discharge Ordered Location: Home kdr Condition: Stable kdr Diagnosis - Threatened kdr - Abnormal uterine and vaginal bleeding, unspecified kdr Followup: kdr - With: Private Physician - When: 2 - 3 days - Reason: If symptoms return, Further diagnostic work-up, Recheck today's complaints, Continuance of care, Re-evaluation by your physician Discharge Instructions: - Discharge Summary Sheet kdr - Threatened Miscarriage kdr - Vaginal Bleeding During , First Trimester kdr - Vaginal Bleeding During , Second Trimester kdr Forms: - Medication Reconciliation Form kdr - Thank You Letter kdr - Work release form Signatures: Dispatcher [employer] EDMS Bruce Dodd MD MD kdr Kinjal Zazueta, RN RN iw Corinne Gibson Corrections: (The following items were deleted from the chart) 07:49 07:49 PSHx: None; [facility]
[2021-08-19 11:34] LABS: Anisocytosis 3+; Blood Morphology Comment NOTED (NOT SEEN); Platelet Estimate ADEQ; White Blood Cell Scan OK (OK)
[2021-08-19 11:35] LABS: Hypochromasia 2+; Ovalocytes 1+; Poikilocytosis 2+
--- NOTE | 2021-08-19 11:43 | RAD REPORT ---
EXAM DESCRIPTION: US - OB Limited - 08/19/2021 11:11 am CLINICAL HISTORY: VAGINAL BLEEDING Pelvic pain COMPARISON: No comparisons FINDINGS: A single live intrauterine gestation is seen with crown-rump length of 6 cm corresponding to 12 weeks 3 days gestational age. Heart rate is 158 beats per minute. There is a prominent cystic structure seen within the gestational sac adjacent to the atria gestation of unclear etiology and significance. This can be reassessed tearing second-trimester sonography.
[2021-08-19 12:00] VITALS: TEMP 97.9; O2SAT 100
[2021-08-19 12:02] VITALS: BP 118/87
== END 2021-08-19 11:48 | disposition home or self-care (01) ==
LOC: ER 07:36
DX: O20.0 Threatened abortion (principal); Z3A.13 13 weeks gestation of pregnancy; N93.9 Abnormal uterine and vaginal bleeding, unspecified
CPT/HCPCS: 36415; 76815; 80048; 81003; 84702; 85025; 86900; 86901; 99283

== ENCOUNTER 2022-10-20 15:54 | Emergency (ER) | payer BC ==
--- OUTSIDE RECORDS SUMMARY | 2022-10-20 16:08 | XMS REPORT | Continuity of Care Document ---
:1990 Author Organization [facility] t Address [address] [place] [address] Care Team Providers Name Role Phone PCP, PATIENT DOES NOT HAVE A Primary Care Physician Unavaila TANISHA Corrales Attending Clinician Unavailable TANISHA JACOBO Attending Clinician Unavailable NAOMIE WILSON Attending Clinician Unavailable Doctor Unassigned, [place] Attending Clinician Unavailable IGOR ACEVEDO Attending Clinician Unavailable Naomie Wilson PA-C Attending Clinician Igor Acevedo MD Attending Clinician RON AVILA Attending Clinician Unavailable Fontanilla III, MOLDER SETTER, R Attending Clinician Carlos Gipson MD Attending Clinician Brodie Cazares MD Attending Clinician Ultrasound, Ang-Mfm Attending Clinician Unavailable Ron Avila MD Attending Clinician [phone] Kathy Motley MD Attending Clinician [phone] KATHY MOTLEY Attending Clinician Unavailable Cesar Bragg DO Attending Clinician KJ DOLL Attending Clinician Unavailable Kj Doll MD Attending Clinician 2, [facility] Attending Clinician Unavailable NARCISA VELASQUEZ Attending Clinician Unavailable 3, [facility] Usg Room Attending Clinician Unavailable Narcisa Velasquez MD Attending Clinician ALEE BARNETT Attending Clinician Unavailable ALEE BARNETT Attending Clinician Unavailable 2, [facility] Usg Room Attending Clinician Unavailable Celestino Leonard MD Attending Clinician Alee Barnett MD Attending Clinician MONIKA MIN Attending Clinician Unavailable 5, [facility] Usg Room Attending Clinician Unavailable Monika Min MD Attending Clinician CELESTINO LEONARD Attending Clinician Unavailable 1, [facility] Usg Room Attending Clinician Unavailable Ria Guevara MD Attending Clinician RIA GUEVARA Attending Clinician Unavailable RIA GUEVARA Attending Clinician Unavailable Brinda Stevenson RN Attending Clinician Unavailable Pob, [facility] Main Attending Clinician Unavailable Allen GOINS, Emmett Attending Clinician Meri Stanley MD Attending Clinician MERI STANLEY Attending Clinician Unavailable Lab, [facility] Pob I Attending Clinician Unavailable Donna Jimenez Attending Clinician DONNA APODACA Attending Clinician Unavailable IGOR ACEVEDO Admitting Clinician Unavailable Igor Acevedo MD Admitting Clinician Payers Payer Name Policy Type Policy Number Effective Date Expiration Date [employer] [id number] 2021 00:00:00 Problems Condition Condition Condition Status Onset Resolution Last Treating Co mments Source Name Details Category Date Date Treatment Clinician Date History of History of Disease Active 2021-03 U nivers gestationa gestationa 2-05 it y of l diabetes l [place] 00 [facility] Liveborn Liveborn Disease Active 2021-03 Unive rs infant, of , of 1-15 it y of [place] , , [place] dical born in born in [facility] hospital by vaginal by vaginal delivery delivery 37 weeks 37 weeks Disease Active 2021-03 Unive rs gestation gestation 1-14 ity of of of 00:00: [place] 00 [facility] GDM GDM Disease Active Univers (gestation (gestation 7-07 it y of al al 00:00: [place] diabetes diabetes 00 Medica l mellitus), mellitus), Br anch class A1 class A1 Obesity in Obesity in Disease Active U nivers 4-21 ity of 00:00: [place] 00 [facility] Anemia of Anemia of Disease Active Uni vers mother in mother in 4-21 ity of , , 00:[place] antepartum antepartum 00 Me dical Branch High risk High risk Disease Active Uni vers , , 4-21 it y of antepartum antepartum [place] [facility] Thrombocyt Thrombocyt Disease Active U nivers hemia hemia - ity of 00:00: [place] 00 [facility] Obesity Obesity Disease Active Univers (BMI (BMI 2-06 ity of 30-39.9) 30-39.9) 00:00: [address] Allergies, Adverse Reactions, Alerts Allergy Allergy Status Severity Reaction(s) Onset Inactive Treating Comm ents Source Name Type Date Date Clinician NO KNOWN Drug Active Univers ALLERGIE Class ity of S [facility] Social History Social Habit Start Date Stop Date Quantity Comments Source ASSERTION 2021-06-04 [facility] 00:00:00 [facility] History of Passive smoker University of tobacco use [facility] Alcohol intake 2022-09-23 2022-09-23 Ex-drinker [facility] 00:00:00 00:00:00 (finding) [facility] Exposure to 2022-04-22 2022-05-02 Not sure University SARS-CoV-2 00:00:00 08:35:00 [facility] (event) [facility] Tobacco use and 2022-02-04 2022-02-04 Smokeless tobacco Un iversity of exposure 00:00:00 00:00:00 non-user [facility] Sex [birth year] Universit y of 00:00:00 00:00:00 [facility] Smoking Status Start Date Stop Date Source Unknown if ever smoked Universit y [facility] Never smoked tobacco [facility] Medications Ordered Filled Start Stop Current Ordering Indication Dosage Frequency Signature Comments Components Source Medication Medication Date Date Medication? Clinician (SIG) Name Name LOESTRIN FE Yes [id number] 1{tbl} Take 1 Univers (LOESTRIN 7-03 tablet by ity o f FE 04/12) 1 00:00: mouth in [place] mg-20 mcg 00 the Medical (21)/75 mg morning. Branc h (7) tablet LOESTRIN FE Yes [id number] 1{tbl} Take 1 Univers (LOESTRIN 7-03 tablet by ity o f FE 04/12) 1 00:00: mouth in [place] mg-20 mcg 00 the Medical (21)/75 mg morning. Branc h (7) tablet NuvaRing Yes [id number] 1{each} Insert 1 Univers 0.12-0.015 6-20 Each into ity of mg/24 hr 00:00: vagina [place] vaginal 00 once every Medica l insert month. Branch Insert vaginally and leave in place for 3 consecutiv e weeks, then remove for 1 week. NuvaRing Yes [id number] 1{each} Insert 1 Univers 0.12-0.015 6-20 Each into ity of mg/24 hr 00:00: vagina [place] vaginal 00 once every Medica l insert month. Branch Insert vaginally and leave in place for 3 consecutiv e weeks, then remove for 1 week. NuvaRing 2022- No [id number] 1{each} Insert 1 Univers 0.12-0.015 6-20 07-03 Each into ity of mg/24 hr 00:00: 00:00 vagina [place] vaginal 00 :00 once every Medica l insert month. Branch Insert vaginally and leave in place for 3 consecutiv e weeks, then remove for 1 week. NuvaRing 2022- No [id number] 1{each} Insert 1 Univers 0.12-0.015 6-20 07-03 Each into ity of mg/24 hr 00:00: 00:00 vagina [place] vaginal 00 :00 once every Medica l insert month. Branch Insert vaginally and leave in place for 3 consecutiv e weeks, then remove for 1 week. NuvaRing 2021-03 Yes [id number] 1{each} Insert 1 Univers 0.12-0.015 2-12 Each into ity of mg/24 hr 00:00: vagina [place] vaginal 00 once every Medica l insert month. Branch Insert vaginally and leave in place for 3 consecutiv e weeks, then remove for 1 week. NuvaRing 2021-03 Yes [id number] 1{each} Insert 1 Univers 0.12-0.015 2-12 Each into ity of mg/24 hr 00:00: vagina [place] vaginal 00 once every Medica l insert month. Branch Insert vaginally and leave in place for 3 consecutiv e weeks, then remove for 1 week. NuvaRing 2021-03 Yes [id number] 1{each} Insert 1 Univers 0.12-0.015 2-12 Each into ity of mg/24 hr 00:00: vagina [place] vaginal 00 once every Medica l insert month. Branch Insert vaginally and leave in place for 3 consecutiv e weeks, then remove for 1 week. NuvaRing 2021-03 Yes [id number] 1{each} Insert 1 Univers 0.12-0.015 2-12 Each into ity of mg/24 hr 00:00: vagina [place] vaginal 00 once every Medica l insert month. Branch Insert vaginally and leave in place for 3 consecutiv e weeks, then remove for 1 week. NuvaRing 2021-03 Yes [id number] 1{each} Insert 1 Univers 0.12-0.015 2-12 Each into ity of mg/24 hr 00:00: vagina [place] vaginal 00 once every Medica l insert month. Branch Insert vaginally and leave in place for 3 consecutiv e weeks, then remove for 1 week. NuvaRing 2021-03- No [id number] 1{each} Insert 1 Univers 0.12-0.015 2-12 06-20 Each into ity of mg/24 hr 00:00: 00:00 vagina [place] vaginal 00 :00 once every Medica l insert month. Branch Insert vaginally and leave in place for 3 consecutiv e weeks, then remove for 1 week. ferrous 2021-03 Take by [facility] s sulfate 04-09-17 mouth. ity of (IRON ORAL) 07:53: 00:00 [place] 18 :00 Medical Branch ferrous 2021-03- No Take by Univer s sulfate 1-17 11-17 mouth. ity of (IRON ORAL) 07:53: 00:00 [place] 18 :00 Medical Branch 2021-03 Yes [id number] 1{tbl} Take 1 Univers vitamin 1-17 tablet by ity of w/FA tablet 00:00: [place] in [place] 00 the Medical morning. Branch docusate 2021-03 Yes [id number] 200mg Take 2 U nivers 100 mg 1-17 capsules ity of capsule 00:00: by mouth [place] 00 once daily Medical as needed Branch for Constipati on. ferrous 2021-03 Yes [id number] 325mg Take 1 Un dax sulfate 325 1-17 tablet by ity of mg (65 mg 00:00: [place] iron) 00 the Medical tablet morning Branch and 1 tablet in the evening. ibuprofen 2021-03 Yes [id number] 600mg Take 1 Univers 600 mg 1-17 tablet by ity of tablet 00:00: mouth [place] 00 every 6 Medical (six) Branch hours as needed (Pain). Take with food or milk. 2021-03 Yes [id number] 1{tbl} Take 1 Univers vitamin 1-17 tablet by ity of w/FA tablet 00:00: mouth in [place] 00 the Medical morning. Branch docusate 2021-03 Yes [id number] 200mg Take 2 U nivers 100 mg 1-17 capsules ity of capsule 00:00: by mouth [place] 00 once daily Medical as needed Branch for Constipati on. ferrous 2021-03 Yes [id number] 325mg Take 1 Un dax sulfate 325 1-17 tablet by ity of mg (65 mg 00:00: [place] iron) 00 the Medical tablet morning Branch and 1 tablet in the evening. ibuprofen 2021-03 Yes [id number] 600mg Take 1 Univers 600 mg 1-17 tablet by ity of tablet 00:00: mouth [place] 00 every 6 Medical (six) Branch hours as needed (Pain). Take with food or milk. 2021-03 Yes [id number] 1{tbl} Take 1 Univers vitamin 1-17 tablet by ity of w/FA tablet 00:00: mouth in [place] 00 the Medical morning. Branch docusate 2021-03 Yes [id number] 200mg Take 2 U nivers 100 mg 1-17 capsules ity of capsule 00:00: by mouth [place] 00 once daily Medical as needed Branch for Constipati on. 2021-03 Yes [id number] 1{tbl} Take 1 Univers vitamin 1-17 tablet by ity of w/FA tablet 00:00: mouth in [place] 00 the Medical morning. Branch docusate 2021-03 Yes [id number] 200mg Take 2 U nivers 100 mg 1-17 capsules ity of capsule 00:00: by mouth [place] 00 once daily Medical as needed Branch for Constipati on. 2021-03 Yes [id number] 1{tbl} Take 1 Univers vitamin 1-17 tablet by ity of w/FA tablet 00:00: mouth [place] 00 [facility] [id number] 200mg Take 2 U nivers 100 mg 1-17 capsules ity of capsule 00:00: by mouth [place] 00 once daily Medical as needed Branch for Constipati on. 2021-03 Yes [id number] 1{tbl} Take 1 Univers vitamin 1-17 tablet by ity of w/FA tablet 00:00: mouth in [place] 00 the Medical morning. [facility] Yes [id number] 200mg Take 2 U nivers 100 mg 1-17 capsules ity of capsule 00:00: by mouth [place] 00 once daily Medical as needed Branch for Constipati on. 2021-03 Yes [id number] 1{tbl} Take 1 Univers vitamin 1-17 tablet by ity of w/FA tablet 00:00: mouth in [place] 00 the Medical morning. [facility] docusate 2021-03 Yes [id number] 200mg Take 2 U nivers 100 mg 1-17 capsules ity of capsule 00:00: by mouth [place] 00 once daily Medical as needed Branch for Constipati on. 2021-03 Yes [id number] 1{tbl} Take 1 Univers vitamin 1-17 tablet by ity of w/FA tablet 00:00: mouth in [place] 00 the Medical morning. [facility] docusate 2021-03 Yes [id number] 200mg Take 2 U nivers 100 mg 1-17 capsules ity of capsule 00:00: by mouth [place] 00 once daily Medical as needed Branch for Constipati on. 2021-03 Yes [id number] 1{tbl} Take 1 Univers vitamin 1-17 tablet by ity of w/FA tablet 00:00: mouth in [place] 00 the Medical morning. Branch docusate 2021-03 Yes [id number] 200mg Take 2 U nivers 100 mg 1-17 capsules ity of capsule 00:00: by mouth [place] 00 once daily Medical as needed Branch for Constipati on. 2021-03 Yes [id number] 1{tbl} Take 1 Univers vitamin 1-17 tablet by ity of w/FA tablet 00:00: mouth in [place] 00 the Medical morning. Branch docusate 2021-03 Yes [id number] 200mg Take 2 U nivers 100 mg 1-17 capsules ity of capsule 00:00: by mouth [place] 00 once daily Medical as needed Branch for Constipati on. 2021-03 Yes [id number] 1{tbl} Take 1 Univers vitamin 1-17 tablet by ity of w/FA tablet 00:00: mouth in [place] 00 the Medical morning. Branch docusate 2021-03 Yes [id number] 200mg Take 2 U nivers 100 mg 1-17 capsules ity of capsule 00:00: by mouth [place] 00 once daily Medical as needed Branch for Constipati on. ferrous 2021-03- No [id number] 325mg Take 1 U nivers sulfate 325 1-17 12-05 tablet by it y of mg (65 mg 00:00: 00:00 mouth in [place] iron) 00 :00 the Medical tablet morning Branch and 1 tablet in the evening. ibuprofen 2021-03- No [id number] 600mg Take 1 Univers 600 mg 1-17 12-05 tablet by ity of tablet 00:00: 00:00 mouth [place] 00 :00 every 6 Medical (six) Branch hours as needed (Pain). Take with food or milk. derek Lester 2021-03 Yes Topical, Un dax (TUCKS) 50 1-16 Q4HPRN, ity of % topical 06:10: [place] pad 33 on Fri02/06/22 Branch at 0010, Until Discontinu ed, Routine, rectal/hem orrhoidal pain rho(D) 2021-03 Yes 300ug 300 mcg, Univer s immune -16 Intramuscu ity of globulin 06:10: lar, ONCE, [place] (RHOGAM) 11 For 1 Medical syringe 300 dose, Branch mcg Conditiona l, Routine HYDROcodone 2021-03 Yes 1{tbl} 1 tablet, Univers -acetaminop 04-08 Oral, ity of hen (NORCO 06:10: Q6HPRN, [place] 5) 5-325 mg 09 Starting Medi mitch tablet 1 on Fri Branch tablet 02/06/22 at 0010, Until Discontinu ed, Routine, Pain (scale 7-10) ibuprofen 2021-03 Yes 600mg 600 mg, Univ ers (IBU) 04-08 Oral, ity of tablet 600 06:10: Q6HPRN, [place] mg 09 Starting Medical on Wed Branch 02/06/22 at 0010, Until Discontinu ed, Routine, Pain (scale 4-6) acetaminoph 2021-03 Yes 650mg 650 mg, Un dax en 16 Oral, ity of (TYLENOL) 06:10: Q6HPRN, [place] tablet 650 09 Starting Medic al mg on Fri Branch 02/06/22 at 0010, Until Discontinu ed, Routine, Pain (scale 1-3) diphenhydrA 2021-03 Yes 25mg 25 mg, Univ ers MINE -16 Oral, ity of (BENADRYL) 06:10: Q6HPRN, [place] tablet 25 09 Starting Medica l mg on Fri Branch 02/06/22 at 0010, Until Discontinu ed, Routine, Sleep, Itching ondansetron 2021-03 Yes 4mg 4 mg, Slow Univers (ZOFRAN -16 IV Push, ity of (PF)) 06:10: Q8HPRN, [place] injection 4 09 Starting Medi mitch mg on Fri Branch 02/06/22 at 0010, Until Discontinu ed, Routine, Nausea and Vomiting (N/V) simethicone 2021-03 Yes 160mg 160 mg, Un dax (GAS RELIEF -16 Oral, ity of (SIMETHICON 06:10: PC+HSPRN, [place] E)) 09 Starting Medical chewable on Wed Branch tablet 160 02/06/22 mg at 0010, Until Discontinu ed, Routine, Gas docusate 2021-03 Yes 200mg 200 mg, Unive rs (COLACE) 1-16 Oral, ity of capsule 200 06:10: QDAILYPRN, [place] mg 09 Starting Medical on Fri Branch 02/06/22 at 0010, Until Discontinu ed, Routine, Constipati on magnesium 2021-03 Yes 30mL 30 mL, Univer s hydroxide -16 Oral, ity of (MILK OF 06:10: QDAILYPRN, [place] MAGNESIA) 09 Starting Medica l 400 mg/5 mL on Fri Branch suspension 02/06/22 30 mL at 0010, Until Discontinu ed, Routine, Constipati on benzocaine- 2021-03 Yes Topical, Un dax menthol -16 PRN, ity of (DERMOPLAST 06:10: [place] ) 20-0.5 % 08 on Fri Medical topical 02/06/22 Branch spray at 0010, Until Discontinu ed, Routine, Perineum discomfort ferrous 2021-03 Yes Take by Univers sulfate 1-15 mouth. ity of (IRON ORAL) 23:29: [place] 21 Medical Branch fentaNYL-ro 2021-03 Yes Epidural, U nivers pivacaine 2 1-15 ONCE INTRA it y of mcg/mL-0.1 12:11: PROCEDURE, [place] % (PF) in 00 Starting Medica l NS 200 mL on Tue Branch epidural 02/05/22 infusion at 0611, RTU Until Discontinu ed, Routine, Intra-op fentaNYL-ro 2021-03 Yes Epidural, U nivers pivacaine 2 1-15 CONTINUOUS it y of mcg/mL-0.1 12:11: PRN, [place] % (PF) in 00 Starting Medica l NS 200 mL on Tue Branch epidural 02/05/22 infusion at 0611, RTU Until Discontinu ed, Routine, Intra-op fentaNYL-ro 2021-03 Yes Epidural, U nivers pivacaine 2 1-15 ONCE INTRA it y of mcg/mL-0.1 12:11: PROCEDURE, [place] % (PF) in 00 Starting Medica l NS 200 mL on Tue Branch epidural 02/05/22 infusion at 0611, RTU Until Discontinu ed, Routine, Intra-op fentaNYL-ro 2021-03 Yes Epidural, U nivers pivacaine 2 1-15 CONTINUOUS it y of mcg/mL-0.1 12:11: PRN, [place] % (PF) in 00 Starting Medica l NS 200 mL on Tue Branch epidural 02/05/22 infusion at 0611, RTU Until Discontinu ed, Routine, Intra-op fentaNYL-ro 2021-03 Yes Epidural, U nivers pivacaine 2 1-15 ONCE INTRA it y of mcg/mL-0.1 12:11: PROCEDURE, [place] % (PF) in 00 Starting Medica l NS 200 mL on Tue Branch epidural 02/05/22 infusion at 0611, RTU Until Discontinu ed, Routine, Intra-op fentaNYL-ro 2021-03 Yes Epidural, U nivers pivacaine 2 1-15 CONTINUOUS it y of mcg/mL-0.1 12:11: PRN, [place] % (PF) in 00 Starting Medica l NS 200 mL on Tue Branch epidural 02/05/22 infusion at 0611, RTU Until Discontinu ed, Routine, Intra-op fentaNYL-ro 2021-03- No Epidural, Univers pivacaine 2 -15 11-21 ONCE INTRA i ty of mcg/mL-0.1 12:11: 12:41 PROCEDURE, [place] % (PF) in 00 :52 Starting Medica l NS 200 mL on Tue Branch epidural 02/05/22 infusion at 0611, RTU Until Discontinu ed, Routine, Intra-op fentaNYL-ro 2021-03- No Epidural, Univers pivacaine 2 -15 11-21 CONTINUOUS i ty of mcg/mL-0.1 12:11: 12:41 PRN, [place] % (PF) in 00 :52 Starting Medica l NS 200 mL on Tue Branch epidural 02/05/22 infusion at 0611, RTU Until Discontinu ed, Routine, Intra-op lidocaine-e 2021-03 Yes Epidural, U nivers pinephrine 1-15 ONCE INTRA ity of (XYLOCAINE 12:04: PROCEDURE, [place] W/EPINEPHRI 00 Starting Medi mitch [place]) 1.5 on Tue Branch %-1:200,000 02/05/22 injection at 0604, Until Discontinu ed, Routine, Intra-op lidocaine-e 2021-03 Yes Epidural, U nivers pinephrine 1-15 ONCE INTRA ity of (XYLOCAINE 12:04: PROCEDURE, [place] W/EPINEPHRI 00 Starting [facility] [place]) 1.5 on [facility] %-1:200,000 02/05/22 injection at 0604, Until Discontinu ed, Routine, Intra-op lidocaine-e 2021-03 Yes Epidural, U nivers pinephrine 1-15 ONCE INTRA ity of (XYLOCAINE 12:04: PROCEDURE, [place] W/EPINEPHRI 00 Starting [facility] [place]) 1.5 on [facility] Branch %-1:200,000 02/05/22 injection at 0604, Until Discontinu ed, Routine, Intra-op lidocaine-e 2021-03- No Epidural, Univers pinephrine 1-15 - ONCE INTRA it y of (XYLOCAINE 12:04: 12:41 PROCEDURE, [place] W/EPINEPHRI 00 :[address] [facility]) 1.5 on [facility] %-1:200,000 02/05/22 injection at 0604, Until Discontinu ed, Routine, Intra-op oxytocin 2021-03- No 2mU/min at 2-40 Un dax (PITOCIN) 1-15 11-16 mL/hr, IV ity of 30 units in 06:00: 06:10 Infusion, [facility] 500 mL 00 :33 TITRATE, Medica l IV infusion Starting Bran ch on Fri02/05/22 at 0000, Until Fri02/06/22 at 0010, Routine misoprostol 2021-03- No 25ug 25 mcg, Un dax (CYTOTEC) 1-14 11-16 Vaginal, ity o f quarter-tab 20:00: 06:10 Q4H ABX, [place] let 25 mcg 00 :33 First dose Med ical on Fri02/04/22 at 1400, Until Discontinu ed, Routine ferrous 2021-03 Yes Take by Univers sulfate 1-14 mouth. ity of (IRON ORAL) 19:29: [address] ferrous 2021-03 Yes Take by Univers sulfate 1-14 mouth. ity of (IRON ORAL) 19:29: [address] ferrous 2021-03 Yes Take by Univers sulfate 1-14 mouth. ity of (IRON ORAL) 19:29: [address] ferrous 2021-03 Yes Take by Univers sulfate 04-06 mouth. ity of (IRON ORAL) 19:29: [address] misoprostol 2021-03- No 25ug 25 mcg, Un dax (CYTOTEC) 04-06 Oral, ity of quarter-tab 17:30: 19:23 ONCE, 1 [place] let 25 mcg 00 :00 dose, On Medic al Mon Branch 02/04/22 at 1130, Routine FENTanyl PF 2021-03- No 100ug 100 mcg, Univers (SUBLIMAZE 04-06 Slow IV ity o f (PF)) 17:17: 06:10 Push, [place] injection 54 :33 Q1HPRN, Medical 100 mcg Starting Branch on Fri02/04/22 at 1117, Until Fri02/06/22 at 0010, Routine, contractio n pain without an epidural and SVE < 8 cm and Cat I strip proMETHazin 2021-03- No 25mg 25 mg, IV Univers e 04-06 Piggyback, ity of (PHENERGAN) 17:17: 06:10 Q4HPRN, [place] 25 mg in 54 :33 Starting Medical NaCl 0.9% on Fri Branch (NS) 50 mL 02/04/22 IV at 1117, piggyback Until Fri02/06/22 at 0010, Routine, Nausea and Vomiting (N/V) Sliding 2021-03- No Subcutaneo Uni vers Scale 04-06 us, ity of Insulin - 17:17: 06:10 SEE-INSTRU [place] Regular + 54 :27 CTIONS, Medical Fsbg Starting Branch Testing on Fri02/04/22 at 1117, Until Fri02/06/22 at 0010, Routine lactated 2021-03- No 500mL at 999 Unive rs ringers IV 04-06 mL/hr, 500 it y of infusion 17:17: 06:10 mL, IV [place] 500 mL 53 :27 Infusion, Medical PRN - SEE Branch INSTRUCTIO NS, Starting on Fri02/04/22 at 1117, Until Fri02/06/22 at 0010, Routine D5W-LR IV 2021-03- No 1000mL at 1-125 U nivers infusion -14 11-16 mL/hr, IV ity o f 1,000 mL 17:17: 06:10 Infusion, [place] 53 :27 TITRATE, Medical Starting Branch on Fri02/04/22 at 1117, Until Fri02/06/22 at 0010, Routine sodium 2021-03- No 30mL 30 mL, Univers citrate-cit 14 11-15 Oral, ity of johana acid 17:17: 11:22 PRE-PROCED [place] (BICITRA) 53 :00 URE ONCE, Medic al 500-334 1 dose, Branch mg/5 mL Starting solution 30 on Fri mL 02/04/22 at 1117, Until Discontinu ed, Routine, Surgery/Pr ocedure lactated 2021-03- No 500mL at 999 Unive rs ringers IV - 11-15 mL/hr, 500 it y of infusion 17:17: 11:00 mL, IV [place] 500 mL 53 :00 Infusion, Medical PRN - SEE Branch INSTRUCTIO NS, 1 dose, Starting on Fri02/04/22 at 1117, Until Discontinu ed, Routine ferrous 0 Yes Take by Univers sulfate 5-23 mouth. ity of (IRON ORAL) 16:27: [address] ferrous Yes Take by Univers sulfate 5-23 mouth. ity of (IRON ORAL) 16:27: [address] ferrous Yes Take by Univers sulfate 5-23 mouth. ity of (IRON ORAL) 16:27: [address] ferrous 2021-0 Yes Take by Univers sulfate 5-23 mouth. ity of (IRON ORAL) 16:27: [address] ferrous 2021-0 Yes Take by Univers sulfate 5-23 mouth. ity of (IRON ORAL) 16:27: [address] ferrous 2021-0 Yes Take by Univers sulfate 5-23 mouth. ity of (IRON ORAL) 16:27: [address] ferrous 2021-0 Yes Take by Univers sulfate 5-23 mouth. ity of (IRON ORAL) 16:27: [address] ferrous 2021-0 Yes Take by Univers sulfate 5-23 mouth. ity of (IRON ORAL) 16:27: [address] ferrous 2021-0 Yes Take by Univers sulfate 5-23 mouth. ity of (IRON ORAL) 16:27: [address] ferrous 0 Yes Take by Univers sulfate 5-23 mouth. ity of (IRON ORAL) 16:27: [address] ferrous 2021-0 Yes Take by Univers sulfate 5-23 mouth. ity of (IRON ORAL) 16:27: [address] ferrous 2021-0 Yes Take by Univers sulfate 5-23 mouth. ity of (IRON ORAL) 16:27: [address] ferrous 2021-0 Yes Take by Univers sulfate 5-23 mouth. ity of (IRON ORAL) 16:27: [address] ferrous 2021-0 Yes Take by Univers sulfate 5-23 mouth. ity of (IRON ORAL) 16:27: [address] ferrous 0 Yes Take by Univers sulfate 5-23 mouth. ity of (IRON ORAL) 16:27: [address] ferrous 0 Yes Take by Univers sulfate 5-23 mouth. ity of (IRON ORAL) 16:27: [address] ferrous 0 Yes Take by Univers sulfate 5-23 mouth. ity of (IRON ORAL) 16:27: [address] ferrous 0 Yes Take by Univers sulfate 5-23 mouth. ity of (IRON ORAL) 16:27: [address] ferrous 0 Yes Take by Univers sulfate 5-23 mouth. ity of (IRON ORAL) 16:27: [address] ferrous 2021-0 Yes Take by Univers sulfate 5-23 mouth. ity of (IRON ORAL) 16:27: [address] ferrous 2021-0 Yes Take by Univers sulfate 5-23 mouth. ity of (IRON ORAL) 16:27: [address] Blood-Gluco Yes Check Personetae rs se Meter 5-04 blood ity of Kit 00:00: glucose [place] 00 four times Medical a day. Branch blood sugar Yes Check Personetae rs diagnostic -04 blood ity of (BLOOD 00:00: glucose [place] GLUCOSE 00 four times Medica l TEST) strip a day. Branch Alcohol Yes Apply to Personetaer s Swabs PadM 5-04 area(s) 4 ity of 00:00: (four) [place] 00 times Medical daily. Branch Blood-Gluco 2022-0 Yes Check Unive rs se Meter 5-04 blood ity of Kit 00:00: glucose [place] 00 four times Medical a day. Branch blood sugar 0 Yes Check Unive rs diagnostic 5-04 blood ity of (BLOOD 00:00: glucose [place] GLUCOSE 00 four times Medica l TEST) strip a day. Branch Alcohol 2021-0 Yes Apply to Univer s Swabs PadM 5-04 area(s) 4 ity of 00:00: (four) [place] 00 times Medical daily. Branch Blood-Gluco 2021-0 Yes Check Unive rs se Meter 5-04 blood ity of Kit 00:00: glucose [place] 00 four times Medical a day. Branch blood sugar 2021-0 Yes Check Unive rs diagnostic 5-04 blood ity of (BLOOD 00:00: glucose [place] GLUCOSE 00 four times Medica l TEST) strip a day. Branch Alcohol 2021-0 Yes Apply to Univer s Swabs PadM 5-04 area(s) 4 ity of 00:00: (four) [place] 00 times Medical daily. Branch Blood-Gluco 2021-0 Yes Check Unive rs se Meter 5-04 blood ity of Kit 00:00: glucose [place] 00 four times Medical a day. Branch blood sugar 0 Yes Check Unive rs diagnostic 5-04 blood ity of (BLOOD 00:00: glucose [place] GLUCOSE 00 four times Medica l TEST) strip a day. Branch Alcohol 2021-0 Yes Apply to Univer s Swabs PadM 5-04 area(s) 4 ity of 00:00: (four) [place] 00 times Medical daily. Branch Blood-Gluco 2021-0 Yes Check Unive rs se Meter 5-04 blood ity of Kit 00:00: glucose [place] 00 four times Medical a day. Branch blood sugar 2021-0 Yes Check Unive rs diagnostic 5-04 blood ity of (BLOOD 00:00: glucose [place] GLUCOSE 00 four times Medica l TEST) strip a day. Branch Alcohol 2021-0 Yes Apply to Univer s Swabs PadM 5-04 area(s) 4 ity of 00:00: (four) [place] 00 times Medical daily. Branch Blood-Gluco 2021-0 Yes Check Unive rs se Meter 5-04 blood ity of Kit 00:00: glucose [place] 00 four times Medical a day. Branch blood sugar 2021-0 Yes Check Unive rs diagnostic 5-04 blood ity of (BLOOD 00:00: glucose [place] GLUCOSE 00 four times Medica l TEST) strip a day. Branch Alcohol 2021-0 Yes Apply to Univer s Swabs PadM 5-04 area(s) 4 ity of 00:00: (four) [place] 00 times Medical daily. Branch Blood-Gluco 2021-0 Yes Check Unive rs se Meter 5-04 blood ity of Kit 00:00: glucose [place] 00 four times Medical a day. Branch blood sugar 2021-0 Yes Check Unive rs diagnostic 5-04 blood ity of (BLOOD 00:00: glucose [place] GLUCOSE 00 four times Medica l TEST) strip a day. Branch Alcohol 2021-0 Yes Apply to Univer s Swabs PadM 5-04 area(s) 4 ity of 00:00: (four) [place] 00 times Medical daily. Branch Blood-Gluco 2021-0 Yes Check Unive rs se Meter 5-04 blood ity of Kit 00:00: glucose [place] 00 four times Medical a day. Branch blood sugar 2021-0 Yes Check Unive rs diagnostic 5-04 blood ity of (BLOOD 00:00: glucose [place] GLUCOSE 00 four times Medica l TEST) strip a day. Branch Alcohol 2021-0 Yes Apply to Univer s Swabs PadM 5-04 area(s) 4 ity of 00:00: (four) [place] 00 times Medical daily. Branch Blood-Gluco 2021-0 Yes Check Unive rs se Meter 5-04 blood ity of Kit 00:00: glucose [place] 00 four times Medical a day. Branch blood sugar 2021-0 Yes Check Unive rs diagnostic 5-04 blood ity of (BLOOD 00:00: glucose [place] GLUCOSE 00 four times Medica l TEST) strip a day. Branch Alcohol 2021-0 Yes Apply to Univer s Swabs PadM 5-04 area(s) 4 ity of 00:00: (four) [place] 00 times Medical daily. Branch Blood-Gluco 2021-0 Yes Check Unive rs se Meter 5-04 blood ity of Kit 00:00: glucose [place] 00 four times Medical a day. Branch blood sugar 2021-0 Yes Check [facility]ive rs diagnostic 5-04 blood ity of (BLOOD 00:00: glucose [place] GLUCOSE 00 four times Medica l TEST) strip a day. Branch Alcohol 2-0 Yes Apply to Univer s Swabs PadM 5-04 area(s) 4 ity of 00:00: (four) [place] 00 times Medical daily. Branch Blood-Gluco 2021-0 Yes Check Unive rs se Meter 5-04 blood ity of Kit 00:00: glucose [place] 00 four times Medical a day. Branch blood sugar 2021-0 Yes Check [facility] rs diagnostic 5-04 blood ity of (BLOOD 00:00: glucose [place] GLUCOSE 00 four times Medica l TEST) strip a day. Branch Alcohol 2021-0 Yes Apply to Univer s Swabs PadM 5-04 area(s) 4 ity of 00:00: (four) [place] 00 times Medical daily. Branch Blood-Gluco 2021-0 Yes Check Unive rs se Meter 5-04 blood ity of Kit 00:00: glucose [place] 00 four times Medical a day. Branch blood sugar 2021-0 Yes Check [facility]ive rs diagnostic 5-04 blood ity of (BLOOD 00:00: glucose [place] GLUCOSE 00 four times Medica l TEST) strip a day. Branch Alcohol 2021-0 Yes Apply to Univer s Swabs PadM 5-04 area(s) 4 ity of 00:00: (four) [place] 00 times Medical daily. Branch Blood-Gluco 2021-0 Yes Check Unive rs se Meter 5-04 blood ity of Kit 00:00: glucose [place] 00 four times Medical a day. Branch blood sugar 2021-0 Yes Check Unive rs diagnostic 5-04 blood ity of (BLOOD 00:00: glucose [place] GLUCOSE 00 four times Medica l TEST) strip a day. Branch Alcohol 2-0 Yes Apply to Univer s Swabs PadM 5-04 area(s) 4 ity of 00:00: (four) [place] 00 times Medical daily. Branch Blood-Gluco 2-0 Yes Check Unive rs se Meter 5-04 blood ity of Kit 00:00: glucose [place] 00 four times Medical a day. Branch blood sugar 2021-0 Yes Check [facility] rs diagnostic 5-04 blood ity of (BLOOD 00:00: glucose [place] GLUCOSE 00 four times Medica l TEST) strip a day. Branch Alcohol 2022-0 Yes Apply to Univer s Swabs PadM 5-04 area(s) 4 ity of 00:00: (four) [place] 00 times Medical daily. Branch Blood-Gluco 2021-0 Yes Check Unive rs se Meter 5-04 blood ity of Kit 00:00: glucose [place] 00 four times Medical a day. Branch blood sugar 2021-0 Yes Check [facility] rs diagnostic 5-04 blood ity of (BLOOD 00:00: glucose [place] GLUCOSE 00 four times Medica l TEST) strip a day. Branch Alcohol 2021-0 Yes Apply to Univer s Swabs PadM 5-04 area(s) 4 ity of 00:00: (four) [place] 00 times Medical daily. Branch Blood-Gluco 2021-0 Yes Check Unive rs se Meter 5-04 blood ity of Kit 00:00: glucose [place] 00 four times Medical a day. Branch blood sugar 2021-0 Yes Check Unive rs diagnostic 5-04 blood ity of (BLOOD 00:00: glucose [place] GLUCOSE 00 four times Medica l TEST) strip a day. Branch Alcohol 2021-0 Yes Apply to Univer s Swabs PadM 5-04 area(s) 4 ity of 00:00: (four) [place] 00 times Medical daily. Branch Blood-Gluco 2021-0 Yes Check Unive rs se Meter 5-04 blood ity of Kit 00:00: glucose [place] 00 four times Medical a day. Branch blood sugar 2021-0 Yes Check [facility]ive rs diagnostic 5-04 blood ity of (BLOOD 00:00: glucose [place] GLUCOSE 00 four times Medica l TEST) strip a day. Branch Alcohol 2021-0 Yes Apply to Univer s Swabs PadM 5-04 area(s) 4 ity of 00:00: (four) [place] 00 times Medical daily. Branch Blood-Gluco 2021-0 Yes Check Unive rs se Meter 5-04 blood ity of Kit 00:00: glucose [place] 00 four times Medical a day. Branch blood sugar 2021-0 Yes Check [facility]ive rs diagnostic 5-04 blood ity of (BLOOD 00:00: glucose [place] GLUCOSE 00 four times Medica l TEST) strip a day. Branch Alcohol 2021-0 Yes Apply to Univer s Swabs PadM 5-04 area(s) 4 ity of 00:00: (four) [place] 00 times Medical daily. Branch Blood-Gluco 2021-0 Yes Check Unive rs se Meter 5-04 blood ity of Kit 00:00: glucose [place] 00 four times Medical a day. Branch blood sugar 2021-0 Yes Check [facility]ive rs diagnostic 5-04 blood ity of (BLOOD 00:00: glucose [place] GLUCOSE 00 four times Medica l TEST) strip a day. Branch Alcohol 2021-0 Yes Apply to Univer s Swabs PadM 5-04 area(s) 4 ity of 00:00: (four) [place] 00 times Medical daily. Branch Blood-Gluco 2021-0 Yes Check Unive rs se Meter 5-04 blood ity of Kit 00:00: glucose [place] 00 four times Medical a day. Branch blood sugar 2021-0 Yes Check Unive rs diagnostic 5-04 blood ity of (BLOOD 00:00: glucose [place] GLUCOSE 00 four times Medica l TEST) strip a day. Branch Alcohol 2021-0 Yes Apply to Univer s Swabs PadM 5-04 area(s) 4 ity of 00:00: (four) [place] 00 times Medical daily. Branch Blood-Gluco 2021-0 Yes Check Unive rs se Meter 5-04 blood ity of Kit 00:00: glucose [place] 00 four times Medical a day. Branch blood sugar 2021-0 Yes Check Unive rs diagnostic 5-04 blood ity of (BLOOD 00:00: glucose [place] GLUCOSE 00 four times Medica l TEST) strip a day. Branch Alcohol 2021-0 Yes Apply to Univer s Swabs PadM 5-04 area(s) 4 ity of 00:00: (four) [place] 00 times Medical daily. Branch Blood-Gluco 2021-0 Yes Check Unive rs se Meter 5-04 blood ity of Kit 00:00: glucose [place] 00 four times Medical a day. Branch blood sugar 2021-0 Yes Check Unive rs diagnostic 5-04 blood ity of (BLOOD 00:00: glucose [place] GLUCOSE 00 four times Medica l TEST) strip a day. Branch Alcohol 2-0 Yes Apply to Univer s Swabs PadM 5-04 area(s) 4 ity of 00:00: (four) [place] 00 times Medical daily. Branch Blood-Gluco 2021-0 Yes Check Unive rs se Meter 5-04 blood ity of Kit 00:00: glucose [place] 00 four times Medical a day. Branch blood sugar 2021-0 Yes Check Unive rs diagnostic 5-04 blood ity of (BLOOD 00:00: glucose [place] GLUCOSE 00 four times Medica l TEST) strip a day. Branch Alcohol 0 Yes Apply to Univer s Swabs PadM 5-04 area(s) 4 ity of 00:00: (four) [place] 00 times Medical daily. Branch Blood-Gluco 0 Yes Check Unive rs se Meter 5-04 blood ity of Kit 00:00: glucose [place] 00 four times Medical a day. Branch blood sugar 0 Yes Check Unive rs diagnostic 5-04 blood ity of (BLOOD 00:00: glucose [place] GLUCOSE 00 four times Medica l TEST) strip a day. Branch Alcohol 2021-0 Yes Apply to Univer s Swabs PadM 5-04 area(s) 4 ity of 00:00: (four) [place] 00 times Medical daily. Branch Blood-Gluco 0 Yes Check Unive rs se Meter 5-04 blood ity of Kit 00:00: glucose [place] 00 four times Medical a day. Branch blood sugar 0 Yes Check Unive rs diagnostic 5-04 blood ity of (BLOOD 00:00: glucose [place] GLUCOSE 00 four times Medica l TEST) strip a day. Branch Alcohol 0 Yes Apply to Univer s Swabs PadM 5-04 area(s) 4 ity of 00:00: (four) [place] 00 times Medical daily. Branch Blood-Gluco 0 Yes Check Unive rs se Meter 5-04 blood ity of Kit 00:00: glucose [place] 00 four times Medical a day. Branch blood sugar Yes Check Unive rs diagnostic 5-04 blood ity of (BLOOD 00:00: glucose [place] GLUCOSE 00 four times Medica l TEST) strip a day. Branch Alcohol 2021-0 Yes Apply to Univer s Swabs PadM 5-04 area(s) 4 ity of 00:00: (four) [place] 00 times Medical daily. Branch Blood-Gluco 2021- No Check Univ ers se Meter 5-04 17 blood ity of Kit 00:00: 00:00 glucose [place] 00 :00 four times Medical a day. Branch blood sugar 0 2021- No Check Univ ers diagnostic 5-04 17 blood ity of (BLOOD 00:00: 00:00 glucose [place] GLUCOSE 00 :00 four times Medica l TEST) strip a day. Branch Alcohol 2021- No Apply to Unive rs Swabs PadM 07-25 area(s) 4 ity of 00:00: 00:00 (four) [place] 00 :00 times Medical daily. Branch Blood-Gluco 2021- No Check Univ ers se Meter 07-25 blood ity of Kit 00:00: 00:00 glucose [place] 00 :00 four times Medical a day. Branch blood sugar 2021- No Check Univ ers diagnostic 07-25 blood ity of (BLOOD 00:00: 00:00 glucose [place] GLUCOSE 00 :00 four times Medica l TEST) strip a day. Branch Alcohol 2021- No Apply to Unive rs Swabs PadM 07-25 area(s) 4 ity of 00:00: 00:00 (four) [place] 00 :00 times Medical daily. Branch Lancets 2021-0 Yes Pt to [facility] 5- check ity of 00:00: blood [place] 00 glucose Medical levels 4 x Branch per day. Lancets 2021-0 Yes Pt to [facility] 5- check ity of 00:00: blood [place] 00 glucose Medical levels 4 x Branch per day. Lancets 2021-0 Yes Pt to [facility] 5- check ity of 00:00: blood [place] 00 glucose Medical levels 4 x Branch per day. Lancets 2021-0 Yes Pt to [place] [facility] 5- check ity of 00:00: blood [place] 00 glucose Medical levels 4 x Branch per day. Lancets 2021-0 Yes Pt to [place] [facility] 5- check ity of 00:00: blood [place] 00 glucose Medical levels 4 x Branch per day. Lancets 2021-0 Yes Pt to [place] [facility] 5- check ity of 00:00: blood [place] 00 glucose Medical levels 4 x Branch per day. Lancets 2021-0 Yes Pt to [place] [facility] 5- check ity of 00:00: blood [place] 00 glucose Medical levels 4 x Branch per day. Lancets 2021-0 Yes Pt to [place] [facility] 5- check ity of 00:00: blood [place] 00 glucose Medical levels 4 x Branch per day. Lancets 2021-0 Yes Pt to [place] [facility] 5- check ity of 00:00: blood [place] 00 glucose Medical levels 4 x Branch per day. Lancets 2021-0 Yes Pt to [place] [facility] 5- check ity of 00:00: blood [place] 00 glucose Medical levels 4 x Branch per day. Lancets 2021-0 Yes Pt to [place] [facility] 5- check ity of 00:00: blood [place] 00 glucose Medical levels 4 x Branch per day. Lancets 2021-0 Yes Pt to [place] [facility] 5- check ity of 00:00: blood [place] 00 glucose Medical levels 4 x Branch per day. Lancets 2021-0 Yes Pt to [place] [facility] 5- check ity of 00:00: blood [place] 00 glucose Medical levels 4 x Branch per day. Lancets 2021-0 Yes Pt to [place] [facility] 5- check ity of 00:00: blood [place] 00 glucose Medical levels 4 x Branch per day. Lancets 2021-0 Yes Pt to [place] [facility] 5- check ity of 00:00: blood [place] 00 glucose Medical levels 4 x Branch per day. Lancets 2021-0 Yes Pt to [place] [facility] 5- check ity of 00:00: blood [place] 00 glucose Medical levels 4 x Branch per day. Lancets 2021-0 Yes Pt to [place] [facility] 5- check ity of 00:00: blood [place] 00 glucose Medical levels 4 x Branch per day. Lancets 2021-0 Yes Pt to [place] [facility] 5- check ity of 00:00: blood [place] 00 glucose Medical levels 4 x Branch per day. Lancets 2021-0 Yes Pt to [place] [facility] 5- check ity of 00:00: blood [place] 00 glucose Medical levels 4 x Branch per day. Lancets 2021-0 Yes Pt to [place] [facility] 5- check ity of 00:00: blood [place] 00 glucose Medical levels 4 x Branch per day. Lancets 2021-0 Yes Pt to [place] [facility] 5- check ity of 00:00: blood [place] 00 glucose Medical levels 4 x Branch per day. Lancets 2021-0 Yes Pt to [place] [facility] 5- check ity of 00:00: blood [place] 00 glucose Medical levels 4 x Branch per day. Lancets 2021-0 Yes Pt to [place] [facility] 07-24 check ity of 00:00: blood [place] 00 glucose Medical levels 4 x Branch per day. Lancets 2021-0 Yes Pt to [place] [facility] 07-24 check ity of 00:00: blood [place] 00 glucose Medical levels 4 x Branch per day. Lancets 2021-0 Yes Pt to [place] [facility] 07-24 check ity of 00:00: blood [place] 00 glucose Medical levels 4 x Branch per day. Lancets 2021-0 Yes Pt to [place] [facility] 07-24 check ity of 00:00: blood [place] 00 glucose Medical levels 4 x Branch per day. Lancets 202- No Pt to [address]02-07 check ity of 00:00: 00:00 blood [place] 00 :00 glucose Medical levels 4 x Branch per day. Lancets 0 2022- No Pt to [address]-07 check ity of 00:00: 00:00 blood [place] 00 :00 glucose Medical levels 4 x Branch per day. PNV Comb Yes [id number] 1{tbl} Take 1 Univers #2-Iron-FA- 4-05 tablet by ity of [place] 3 00:00: mouth [place] mg iron-1 00 daily. Medical mg -430 mg Branch Cmpk PNV Comb Yes [id number] 1{tbl} Take 1 Univers #2-Iron-FA- 4-05 tablet by ity of [place] 3 00:00: mouth [place] mg iron-1 00 daily. Medical mg -430 mg Branch Cmpk PNV Comb Yes [id number] 1{tbl} Take 1 Univers #2-Iron-FA- 4-05 tablet by ity of [place] 3 00:00: mouth [place] mg iron-1 00 daily. Medical mg -430 mg Branch Cmpk PNV Comb Yes [id number] 1{tbl} Take 1 Univers #2-Iron-FA- 4-05 tablet by ity of [place] 3 00:00: mouth [place] mg iron-1 00 daily. Medical mg -430 mg Branch Cmpk PNV Comb Yes [id number] 1{tbl} Take 1 Univers #2-Iron-FA- 4-05 tablet by ity of [place] 3 00:00: mouth [place] mg iron-1 00 daily. Medical mg -430 mg Branch [facility] PNV Comb Yes [id number] 1{tbl} Take 1 Univers #2-Iron-FA- 4-05 tablet by ity of [place] 3 00:00: mouth [place] mg iron-1 00 daily. Medical mg -430 mg Branch [facility] PNV Comb Yes [id number] 1{tbl} Take 1 Univers #2-Iron-FA- 4-05 tablet by ity of [place] 3 00:00: mouth [place] mg iron-1 00 daily. Medical mg -430 mg Branch [facility] PNV Comb Yes [id number] 1{tbl} Take 1 Univers #2-Iron-FA- 4-05 tablet by ity of [place] 3 00:00: mouth [place] mg iron-1 00 daily. Medical mg -430 mg Branch [facility] PNV Comb Yes [id number] 1{tbl} Take 1 Univers #2-Iron-FA- 4-05 tablet by ity of [place] 3 00:00: mouth [place] mg iron-1 00 daily. Medical mg -430 mg Branch [facility] PNV Comb Yes [id number] 1{tbl} Take 1 Univers #2-Iron-FA- 4-05 tablet by ity of [place] 3 00:00: mouth [place] mg iron-1 00 daily. Medical mg -430 mg Branch [facility] PNV Comb Yes [id number] 1{tbl} Take 1 Univers #2-Iron-FA- 4-05 tablet by ity of [place] 3 00:00: mouth [place] mg iron-1 00 daily. Medical mg -430 mg Branch [facility] V Comb Yes [id number] 1{tbl} Take 1 Univers #2-Iron-FA- 4-05 tablet by ity of [place] 3 00:00: mouth [place] mg iron-1 00 daily. Medical mg -430 mg Branch [facility] V Comb Yes [id number] 1{tbl} Take 1 Univers #2-Iron-FA- 4-05 tablet by ity of [place] 3 00:00: mouth [place] mg iron-1 00 daily. Medical mg -430 mg Branch [facility] PNV Comb Yes [id number] 1{tbl} Take 1 Univers #2-Iron-FA- 4-05 tablet by ity of [place] 3 00:00: mouth [place] mg iron-1 00 daily. Medical mg -430 mg [facility] PNV Comb Yes [id number] 1{tbl} Take 1 Univers #2-Iron-FA- 4-05 tablet by ity of [place] 3 00:00: mouth [place] mg iron-1 00 daily. Medical mg -430 mg [facility] PNV Comb Yes [id number] 1{tbl} Take 1 Univers #2-Iron-FA- 4-05 tablet by ity of [place] 3 00:00: mouth [place] mg iron-1 00 daily. Medical mg -430 mg Branch [facility] PNV Comb Yes [id number] 1{tbl} Take 1 Univers #2-Iron-FA- 4-05 tablet by ity of [place] 3 00:00: mouth [place] mg iron-1 00 daily. Medical mg -430 mg [facility] PNV Comb Yes [id number] 1{tbl} Take 1 Univers #2-Iron-FA- 4-05 tablet by ity of [place] 3 00:00: mouth [place] mg iron-1 00 daily. Medical mg -430 mg Branch [facility] PNV Comb Yes [id number] 1{tbl} Take 1 Univers #2-Iron-FA- 4-05 tablet by ity of [place] 3 00:00: mouth [place] mg iron-1 00 daily. Medical mg -430 mg Branch [facility] PNV Comb Yes [id number] 1{tbl} Take 1 Univers #2-Iron-FA- 4-05 tablet by ity of [place] 3 00:00: mouth [place] mg iron-1 00 daily. Medical mg -430 mg Branch [facility] PNV Comb Yes [id number] 1{tbl} Take 1 Univers #2-Iron-FA- 4-05 tablet by ity of [place] 3 00:00: mouth [place] mg iron-1 00 daily. Medical mg -430 mg Branch [facility] PNV Comb Yes [id number] 1{tbl} Take 1 Univers #2-Iron-FA- 4-05 tablet by ity of [place] 3 29 00:00: mouth [place] mg iron-1 00 daily. Medical mg -430 mg Branch Cmpk PNV Comb Yes [id number] 1{tbl} Take 1 Univers #2-Iron-FA- 4-05 tablet by ity of [place] 3 00:00: mouth [place] mg iron-1 00 daily. Medical mg -430 mg Branch Cmpk PNV Comb Yes [id number] 1{tbl} Take 1 Univers #2-Iron-FA- 4-05 tablet by ity of [place] 3 00:00: mouth [place] mg iron-1 00 daily. Medical mg -430 mg Branch Cmpk PNV Comb Yes [id number] 1{tbl} Take 1 Univers #2-Iron-FA- 4-05 tablet by ity of [place] 3 00:00: mouth [place] mg iron-1 00 daily. Medical mg -430 mg Branch Cmpk PNV Comb Yes [id number] 1{tbl} Take 1 Univers #2-Iron-FA- 4-05 tablet by ity of [place] 3 00:00: mouth [place] mg iron-1 00 daily. Medical mg -430 mg Branch Cmpk PNV Comb 2021- No [id number] 1{tbl} Take 1 Univers #2-Iron-FA- 4-05 11-17 tablet by it y of [place] 3 00:00: 00:00 mouth [place] mg iron-1 00 :00 daily. Medical mg -430 mg Branch Cmpk PNV Comb 2021- No [id number] 1{tbl} Take 1 Univers #2-Iron-FA- 4-05 11-17 tablet by it y of [place] 3 00:00: 00:00 mouth [place] mg iron-1 00 :00 daily. Medical mg -430 mg Branch Cmpk Immunizations Ordered Filled Immunization Date Status Comments [facility] Immunization Name Name TDAP 2022-01-16 Completed [facility] 00:00: [facility] TDAP 2022-01-16 Completed University of :00: [facility] TDAP 2022-01-16 Completed University :00: [facility] TDAP 2022-01-16 Completed :00: [facility] TDAP 2022-01-16 Completed University of :00:00 [facility] TDAP 2022-01-16 Completed University of 00:00:00 [facility] TDAP 2022-01-16 Completed University of 00:00:00 [facility] TDAP 2022-01-16 Completed University of 00:00:00 [facility] TDAP 2022-01-16 Completed University of 00:00:00 [facility] TDAP 2022-01-16 Completed University of 00:00:00 [facility] TDAP 2022-01-16 Completed University of 00:00:00 [facility] TDAP 2022-01-16 Completed University of 00:00:00 [facility] TDAP 2022-01-16 Completed University of 00:00:00 [facility] TDAP 2022-01-16 Completed University of 00:00:00 [facility] TDAP 2022-01-16 Completed University of 00:00:00 [facility] TDAP 2022-01-16 Completed University of 00:00:00 [facility] TDAP 2022-01-16 Completed University of 00:00:00 [facility] TDAP 2022-01-16 Completed University of 00:00:00 [facility] TDAP 2022-01-16 Completed University of 00:00:00 [facility] TDAP 2022-01-16 Completed University of 00:00:00 [facility] TDAP 2022-01-16 Completed University of 00:00:00 [facility] TDAP 2022-01-16 Completed University of 00:00:00 [facility] TDAP 2022-01-16 Completed University of 00:00:00 [facility] Influenza Virus 2021-12-19 Completed Universit y of [facility], 00:00:00 [place] [facility] Preserv and ABX Branch Free 6 MO-64 YRS Influenza Virus 2021-12-19 Completed Universit y of [facility], 00:00:00 [place] Me dical Preserv and ABX Branch Free 6 MO-64 YRS Influenza Virus 2021-12-19 Completed Universit y of [facility], 00:00:00 [place] [facility] Preserv and ABX Branch Free 6 MO-64 YRS Influenza Virus 2021-12-19 Completed Universit y of [facility], 00:00:00 [place] [facility] Preserv and ABX Branch Free 6 MO-64 YRS Influenza Virus 2021-12-19 Completed Universit y of [facility], 00:00:00 [place] Me dical Preserv and ABX Branch Free 6 MO-64 YRS Influenza Virus 2021-12-19 Completed Universit y of [facility], 00:00:00 [place] Me [facility]ical Preserv and ABX Branch Free 6 MO-64 YRS Influenza Virus 2021-12-19 Completed Universit y of [facility], 00:00:00 [place] Me [facility]ical Preserv and ABX Branch Free 6 MO-64 YRS Influenza Virus 2021-12-19 Completed Universit y of [facility], 00:00:00 [place] Me [facility]ical Preserv and ABX Branch Free 6 MO-64 YRS Influenza Virus 2021-12-19 Completed Universit y of [facility], 00:00:00 [place] Me [facility]ical Preserv and ABX Branch Free 6 MO-64 YRS Influenza Virus 2021-12-19 Completed Universit y of [facility], 00:00:00 [place] Me dical Preserv and ABX Branch Free 6 MO-64 YRS Influenza Virus 2021-12-19 Completed Universit y of [facility], 00:00:00 [place] Me dical Preserv and ABX Branch Free 6 MO-64 YRS Influenza Virus 2021-12-19 Completed Universit y of [facility], 00:00:00 [place] Me dical Preserv and ABX Branch Free 6 MO-64 YRS Influenza Virus 2021-12-19 Completed Universit y of [facility], 00:00:00 [place] Me dical Preserv and ABX Branch Free 6 MO-64 YRS Influenza Virus 2021-12-19 Completed Universit y of [facility], 00:00:00 [place] Me dical Preserv and ABX Branch Free 6 MO-64 YRS Influenza Virus 2021-12-19 Completed Universit y of [facility], 00:00:00 [place] Me dical Preserv and ABX Branch Free 6 MO-64 YRS Influenza Virus 2021-12-19 Completed Universit y of [facility], 00:00:00 [place] Me dical Preserv and ABX Branch Free 6 MO-64 YRS Influenza Virus 2021-12-19 Completed Universit y of [facility], 00:00:00 [place] Me dical Preserv and ABX Branch Free 6 MO-64 YRS Influenza Virus 2021-12-19 Completed Universit y of [facility], 00:00:00 [place] [facility] dical Preserv and ABX Branch Free 6 MO-64 YRS Influenza Virus 2021-12-19 Completed Universit y of [facility], 00:00:00 [place] dical Preserv and ABX Branch Free 6 MO-64 YRS Influenza Virus 2021-12-19 Completed [facility]it y of [facility], 00:00:00 [place] [facility] Preserv and ABX Branch Free 6 MO-64 YRS Influenza Virus 2021-12-19 Completed Universit y of [facility], 00:00:00 [place] [facility] Preserv and ABX Branch Free 6 MO-64 YRS Influenza Virus 2021-12-19 Completed Universit y of [facility], 00:00:00 [place] [facility] Preserv and ABX Branch Free 6 MO-64 YRS Influenza Virus 2021-12-19 Completed Universit y of [facility], 00:00:00 [place] [facility] Preserv and ABX Branch Free 6 MO-64 YRS Influenza Virus 2021-12-19 Completed [facility]it y of [facility], 00:00:00 [place] [facility] Preserv and ABX Branch Free 6 MO-64 YRS Influenza Virus 2021-12-19 Completed [facility]it y of [facility], 00:00:00 [place] [facility] Preserv and ABX Branch Free 6 MO-64 YRS Influenza Virus 2021-12-19 Completed [facility]it y of [facility], 00:00:00 [place] [facility] Preserv and ABX Branch Free 6 MO-64 YRS Influenza Virus 2021-12-19 Completed [facility]it y of [facility], 00:00:00 [place] [facility] Preserv and ABX Branch Free 6 MO-64 YRS Influenza Virus 2021-12-19 Completed [facility]it y of [facility], 00:00:00 [place] [facility] Preserv and ABX Branch Free 6 MO-64 YRS Influenza Virus 2021-12-19 Completed [facility]it y of [facility], 00:00:00 [place] [facility] Preserv and ABX Branch Free 6 MO-64 YRS Influenza Virus 2021-12-19 Completed [facility]it y of [facility], 00:00:00 [place] [facility] Preserv and ABX Branch Free 6 MO-64 YRS Influenza Virus 2021-12-19 Completed [facility]it y of [facility], 00:00:00 [place] [facility] Preserv and ABX Branch Free 6 MO-64 YRS Influenza Virus 2021-07-12 Completed [facility]it y of [facility], 00:00:00 [place] [facility] Preserv and ABX Branch Free 6 MO-64 YRS Influenza Virus 2021-07-12 Completed [facility]it y [facility], 00:00:00 [place] [facility] Preserv and ABX Branch Free 6 MO-64 YRS Influenza Virus 2021-07-12 Completed [facility]it y [facility], 00:00:00 [place] [facility] Preserv and ABX Branch Free 6 MO-64 YRS Influenza Virus 2021-07-12 Completed [facility]it y [facility], 00:00:00 [place] [facility] Preserv and ABX Branch Free 6 MO-64 YRS Influenza Virus 2021-07-12 Completed [facility], 00:00:00 [place] [facility] Preserv and ABX Branch Free 6 MO-64 YRS Influenza Virus 2021-07-12 Completed [facility]it y [facility], 00:00:00 [place] [facility] Preserv and ABX Branch Free 6 MO-64 YRS Influenza Virus 2021-07-12 Completed [facility]it y [facility], 00:00:00 [place] [facility] Preserv and ABX Branch Free 6 MO-64 YRS Influenza Virus 2021-07-12 Completed [facility]it y [facility], 00:00:00 [place] [facility] Preserv and ABX Branch Free 6 MO-64 YRS Influenza Virus 2021-07-12 Completed [facility], 00:00:00 [place] [facility] Preserv and ABX Branch Free 6 MO-64 YRS Influenza Virus 2021-07-12 Completed [facility] y [facility], 00:00:00 [place] [facility] Preserv and ABX Branch Free 6 MO-64 YRS Influenza Virus 2021-07-12 Completed [facility], 00:00:00 [place] [facility] Preserv and ABX Branch Free 6 MO-64 YRS Influenza Virus 2021-07-12 Completed [facility] y [facility], 00:00:00 [place] [facility] Preserv and ABX Branch Free 6 MO-64 YRS Influenza Virus 2021-07-12 Completed [facility] y [facility], 00:00:00 [place] [facility] Preserv and ABX Branch Free 6 MO-64 YRS Influenza Virus 2021-07-12 Completed [facility] y [facility], 00:00:00 [place] [facility] Preserv and ABX Branch Free 6 MO-64 YRS Influenza Virus 2021-07-12 Completed [facility]it y of [facility], 00:00:00 [place] [facility] Preserv and ABX Branch Free 6 MO-64 YRS Influenza Virus 2021-07-12 Completed [facility]it y [facility], 00:00:00 [place] [facility] Preserv and ABX Branch Free 6 MO-64 YRS Influenza Virus 2021-07-12 Completed [facility]it y [facility], 00:00:00 [place] [facility] Preserv and ABX Branch Free 6 MO-64 YRS Influenza Virus 2021-07-12 Completed [facility] y [facility], 00:00:00 [place] [facility] Preserv and ABX Branch Free 6 MO-64 YRS Influenza Virus 2021-07-12 Completed [facility]it [facility], 00:00:00 [place] [facility] Preserv and ABX Branch Free 6 MO-64 YRS Influenza Virus 2021-07-12 Completed [facility], 00:00:00 [place] [facility] Preserv and ABX Branch Free 6 MO-64 YRS Influenza Virus 2021-07-12 Completed [facility], 00:00:00 [place] [facility] Preserv and ABX Branch Free 6 MO-64 YRS Influenza Virus 2021-07-12 Completed [facility], 00:00:00 [place] [facility] Preserv and ABX Branch Free 6 MO-64 YRS Influenza Virus 2021-07-12 Completed [facility], 00:00:00 [place] [facility] Preserv and ABX Branch Free 6 MO-64 YRS Influenza Virus 2021-07-12 Completed [facility], 00:00:00 [place] [facility] Preserv and ABX Branch Free 6 MO-64 YRS Influenza Virus 2021-07-12 Completed [facility] y [facility], 00:00:00 [place] [facility] Preserv and ABX Branch Free 6 MO-64 YRS Influenza Virus 2021-07-12 Completed [facility], 00:00:00 [place] [facility] Preserv and ABX Branch Free 6 MO-64 YRS Influenza Virus 2021-07-12 Completed [facility], 00:00:00 [place] Preserv and ABX Branch Free 6 MO-64 YRS Influenza Virus 2021-07-12 Completed [facility]it y [facility], 00:00:00 [place] Preserv and ABX Branch Free 6 MO-64 YRS Influenza Virus 2021-07-12 Completed [facility]it y [facility], 00:00:00 [place] [facility] Preserv and ABX Branch Free 6 MO-64 YRS Influenza Virus 2021-07-12 Completed [facility], 00:00:00 [place] [facility] Preserv and ABX Branch Free 6 MO-64 YRS Influenza Virus 2021-07-12 Completed [facility], 00:00:00 [place] [facility] Preserv and ABX Branch Free 6 MO-64 YRS Influenza Virus 2021-07-12 Completed [facility], 00:00:00 [place] [facility] Preserv and ABX Branch Free 6 MO-64 YRS Influenza Virus 2021-07-12 Completed [facility], 00:00:00 [place] [facility] Preserv and ABX Branch Free 6 MO-64 YRS Influenza Virus 2021-07-12 Completed [facility], 00:00:00 [place] [facility] Preserv and ABX Branch Free 6 MO-64 YRS Influenza Virus 2021-07-12 Completed [facility], 00:00:00 [place] [facility] Preserv and ABX Branch Free 6 MO-64 YRS Influenza Virus 2021-07-12 Completed [facility], 00:00:00 [place] [facility] Preserv and ABX Branch Free 6 MO-64 YRS Influenza Virus 2021-07-12 Completed [facility], 00:00:00 [place] Preserv and ABX Branch Free 6 MO-64 YRS Influenza Virus 2021-07-12 Completed [facility], 00:00:00 [place] Preserv and ABX Branch Free 6 MO-64 YRS Vital Signs Vital Name Observation Time Observation Value Comments Source Systolic blood 2022-09-23 19:37:00 124 mm[Hg] Univer sity of pressure [facility] Diastolic blood 2022-09-23 19:37:00 87 mm[Hg] Unive rsity of pressure [facility] Heart rate 2022-09-23 19:37:00 77 /min Universi ty of [facility] Respiratory rate 2022-09-23 19:37:00 18 /min Univ ersity of [facility] Body height 2022-09-23 19:37:00 162.6 cm [facility] [place] [facility] Body weight 2022-09-23 19:37:00 101.696 kg [facility] [place] [facility] BMI 2022-09-23 19:37:00 38.48 kg/m2 Universi ty of [facility] Oxygen saturation in 2022-09-23 19:37:00 98 /min University of Arterial blood by [facility] Pulse oximetry Branch Systolic blood 2022-05-02 14:45:00 129 mm[Hg] Univer sity of pressure [facility] Diastolic blood 2022-05-02 14:45:00 86 mm[Hg] Unive rsity of pressure [facility] Heart rate 2022-05-02 14:45:00 87 /min [facility] Body temperature 2022-05-02 14:45:00 36.83 Ayleen Univ ersity of [facility] Body height 2022-05-02 14:45:00 162.6 cm [facility] Body weight 2022-05-02 14:45:00 97.342 kg [facility] BMI 2022-05-02 14:45:00 36.84 kg/m2 [facility] Systolic blood 2022-02-25 21:42:00 119 mm[Hg] Univer sity of [facility] Diastolic blood 2022-02-25 21:42:00 80 mm[Hg] Unive rsity of pressure [facility] Heart rate 2022-02-25 21:42:00 78 /min Universi ty of [facility] Body temperature 2022-02-25 21:42:00 36.67 Ayleen Univ ersity of [facility] Body height 2022-02-25 21:42:00 162.6 cm [facility] Body weight 2022-02-25 21:42:00 98.158 kg [facility] BMI 2022-02-25 21:42:00 37.14 kg/m2 [facility] [place] [facility] Systolic blood 2022-02-07 14:30:00 112 mm[Hg] Univer sity of pressure [facility] Diastolic blood 2022-02-07 14:30:00 71 mm[Hg] Unive rsity of pressure [facility] Heart rate 2022-02-07 14:30:00 81 /min [facility]i ty [facility] [place] [facility] Body temperature 2022-02-07 14:30:00 36.56 Ayleen Univ ersity of [facility] Branch Oxygen saturation in 2022-02-07 14:30:00 99 /min University of Arterial blood by [facility] Pulse oximetry Branch Respiratory rate 2022-02-06 22:45:00 18 /min Univ ersity of [facility] Body height 2022-02-04 23:01:00 162.6 cm [facility] Body weight 2022-02-04 23:01:00 107.412 kg [facility] [place] [facility] BMI 2022-02-04 23:01:00 40.65 kg/m2 [facility] [place] [facility] Systolic blood 2022-01-30 22:41:00 111 mm[Hg] Univer sity of pressure [facility] Diastolic blood 2022-01-30 22:41:00 75 mm[Hg] Unive rsity of pressure [facility] Heart rate 2022-01-30 22:41:00 87 /min [facility] Body temperature 2022-01-30 22:41:00 36.72 Ayleen Univ ersity of [place] [facility] Respiratory rate 2022-01-30 22:41:00 18 /min Univ ersity of [place] [facility] Body height 2022-01-30 22:41:00 162.6 cm [facility] Body weight 2022-01-30 22:41:00 105.597 kg [facility] [place] [facility] BMI 2022-01-30 22:41:00 39.96 kg/m2 [facility] [place] [facility] Systolic blood 2022-01-16 18:45:00 111 mm[Hg] Univer sity of pressure [facility] Diastolic blood 2022-01-16 18:45:00 75 mm[Hg] Unive rsity of pressure [place] [facility] Heart rate 2022-01-16 18:45:00 83 /min Universi ty of [facility] Body temperature 2022-01-16 18:45:00 36.78 Ayleen Univ ersity of [place] [facility] Respiratory rate 2022-01-16 18:45:00 18 /min Univ ersity of [place] [facility] Body height 2022-01-16 18:45:00 162.6 cm Universi ty [facility] [place] [facility] Body weight 2022-01-16 18:45:00 105.507 kg [facility] [place] [facility] BMI 2022-01-16 18:45:00 39.93 kg/m2 [facility] ty of [facility] Systolic blood 2021-12-31 14:20:00 115 mm[Hg] Univer sity of pressure [facility] Diastolic blood 2021-12-31 14:20:00 75 mm[Hg] Unive rsity of pressure [facility] Heart rate 2021-12-31 14:20:00 76 /min Universi ty of [place] [facility] Body temperature 2021-12-31 14:20:00 36.72 Ayleen Univ ersity of [facility] Respiratory rate 2021-12-31 14:20:00 18 /min Univ ersity of [facility] Body height 2021-12-31 14:20:00 162.6 cm [facility]i ty [facility] [place] [facility] Body weight 2021-12-31 14:20:00 102.967 kg [facility] [place] [facility] BMI 2021-12-31 14:20:00 38.96 kg/m2 [facility] [place] [facility] Systolic blood 2021-12-19 20:49:00 126 mm[Hg] Univer sity of pressure [place] [facility] Diastolic blood 2021-12-19 20:49:00 84 mm[Hg] Unive rsity of pressure [facility] Heart rate 2021-12-19 20:49:00 105 /min [facility]i ty [facility] [place] [facility] Body temperature 2021-12-19 20:49:00 36.72 Ayleen Univ ersity of [place] [facility] Respiratory rate 2021-12-19 20:49:00 18 /min Univ ersity of [place] [facility] Body height 2021-12-19 20:49:00 162.6 cm [facility] [place] [facility] Body weight 2021-12-19 20:49:00 103.329 kg [facility] BMI 2021-12-19 20:49:00 39.10 kg/m2 [facility] Procedures Procedure Date / Time Performing Clinician Source Performed POCT TEST 2022-09-23 19:41:00 [facility]CIAL 2022-09-23 19:27:18 Doctor Unassigned, No [facility] POLICY [facility] CONSENT FOR 2022-02-25 06:01:00 Doctor Unassigned, No Univer sity of [facility] POCT TEST 2022-02-25 00:00:00 Igor Acevedo [facility] CBC WITH DIFF 2022-02-06 16:24:00 Igor Acevedo [place] [facility] DISABILITY/FMLA 2022-02-06 06:01:00 Doctor Unassigned, No [facility] (AUTOMATED) 2022-02-06 03:57:00 [facility] 2022-02-06 01:59:00 [facility] ([facility]OMATED) 2022-02-05 23:52:00 [facility]SE (AUTOMATED) 2022-02-05 21:58:00 [facility] POCT GLUCOSE (AUTOMATED) 2022-02-05 18:04:00 [facility]SE (AUTOMATED) 2022-02-05 13:57:00 [facility] CENTRAL NEURAXIAL BLOCK 2022-02-05 12:15:35 Brodie Cazares [facility] POCT GLUCOSE (AUTOMATED) 2022-02-05 10:06:00 [facility]SE (AUTOMATED) 2022-02-05 05:59:00 [facility] PO[facility]UCOSE (AUTOMATED) 2022-02-05 01:58:00 Acevedo, Igor Cam [facility] POCT GLUCOSE (AUTOMATED) 2022-02-04 22:08:00 Igor Acevedo [facility] CBC WITH DIFF 2022-02-04 18:23:00 Igor Acevedo [place] [facility] HEPATITIS B SURFACE 2022-02-04 18:23:00 Igor Acevedo [facility] ANTIGEN [facility] ADC OR [place] ONLY - 2022-02-04 18:23:00 Igor Acevedo [facility] RPR [facility] Branch HIV 1/2 AG-AB WITH 2022-02-04 18:23:00 Igor Acevedo [facility] REFLEX [facility] HB ABO GROUPING 2022-02-04 18:20:00 Igor Acevedo [facility] RHO (D) IMMUNE GLOBULIN 2022-02-04 18:20:00 Igor Acevedo [facility] POCT GLUCOSE (AUTOMATED) 2022-02-04 18:03:00 Igor Acevedo [facility] CONSENT/REFUSAL FOR 2022-02-04 17:15:43 Doctor Unassigned, No [facility] DIAGNOSIS AND TREATMENT [facility] ASSIGNMENT OF BENEFITS 2022-02-04 17:15:25 Doctor Unassigned, No [facility] HOSPITAL ADMISSION 2022-02-04 06:01:00 Doctor Unassigned, No Uni [facility] >14 WEEKS US 2022-01-30 23:29:05 Igor Acevedo [facility] DSU PRE-OP 2022-01-30 06:01:00 Doctor Unassigned, No [facility] POCT URINALYSIS W/O 2022-01-30 00:00:00 Igor Acevedo [facility] SPECIFIC GRAVITY [facility] TDAP VACCINE, >11 YRS, 2022-01-16 19:55:14 Igor Acevedo [facility] POCT URINALYSIS W/O 2022-01-16 18:47:00 Igor Acevedo [facility] SPECIFIC GRAVITY [facility] NON-STRESS TEST 2021-12-31 15:24:49 [facility]/O 2021-12-31 00:00:00 Naomie Wilson [facility] FLU VACC ([phone]), 6 2021-12-19 21:01:05 Igor Acevedo [facility] MO-64 YRS, .5ML, IM, Medical [facility] QUAD (FLUCELVAX) POCT URINALYSIS W/O 2021-12-19 00:00:00 Igor Acevedo [facility] SECOND AND THIRD 2021-12-07 14:32:00 Katie [facility] TRIMESTER ULTRASOUND Medical [facility] SECOND AND THIRD 2021-12-03 12:58:00 Katie [facility] TRIMESTER ULTRASOUND Medical [facility] Encounters Start End Encounter Admission Attending Care Care Encounter Source Date/Time Date/Time Type Type Clinicians Facility Department ID 2021-04-25 Outpatient LIVST LIVST [id number] [facility] 08:48:45 -[id number] [facility] 2023-09-29 2023-09-29 Outpatient R TANISHA JACOBO [facility] U TMB [id number] Univers 16:30:00 16:30:00 TANISHA JACOBO [facility] 2022-09-23 2022-09-23 Office Angela [facility] [id number] [id number] Univers 14:30:00 15:00:00 [id number] PROFESSIO [phone] [address] 2022-09-23 2022-09-23 Outpatient R TANISHA JACOBO [facility] U TMB [id number] Univers 14:30:00 14:30:00 [facility] 2022-09-23 2022-09-23 Orders Doctor FLORES 1.2.840.114 [id number] Univers 00:00:00 00:00:00 Only Unassigned, SALMA 350.1.13.10 ity of [place] [facility] [id number] Vijay as [phone] [address] 2022-09-07 2022-09-07 [facility] 1.2.840.114 [id number] Univers 00:00:00 00:00:00 sTanisha 350.1.13.10 ity of [id number] [id number] Dc dical NAL [address] [place] [address] 2022-05-02 2022-05-02 Outpatient R IGOR ACEVEDO [facility] [id number] Univers 08:00:00 09:02:03 ity of [facility] 2022-05-02 2022-05-02 Office Naomie Wilson [facility] [id number] Univers 08:00:00 09:02:03 Visit Igor Acevedo 350.1.13.10 ity [id number] [id number] Dc dical NAL [address] [place] [address] 2022-03-21 2022-03-21 Patient Doctor [facility] 1.2.840.114 [id number] Univers 00:00:00 00:00:00 Secure Msg Unassigned, VLADIMIR 350.1.13.10 [place]y [place] [id number] [id number] Dc dical NAL [address] [place] [address] 2022-03-11 2022-03-11 Outpatient R [facility] [id number] Univers 09:15:00 09:15:00 ity of [facility] 2022-02-25 2022-02-25 Routine Igor Acevedo [facility] [id number] Univers 15:30:00 16:14:14 Naveen GILBERT 350.1.13.10 ity of [place] PROF[place] [phone] Dc dical NAL [address] [place] [address] 2022-02-25 2022-02-25 Outpatient P IGOR ACEVEDO [facility] [id number] Univers 08:00:00 08:00:00 ity of [facility] 2022-02-25 2022-02-25 Orders Doctor SANDRA 1.2.840.114 [id number] Univers 00:00:00 00:00:00 Only Unassigned, SALMA 350.1.13.10 ity of [place] [facility] 4.2.7.2.686 [place]ijay as [phone] [facility] 009 Branch 2022-02-18 2022-02-18 Outpatient P CERDA [facility] [id number] Univers 08:00:00 08:00:00 KOSAVIOUVELI it y of S, VELASQUEZ [facility] 2022-02-11 2022-02-11 Outpatient P [facility] [id number] Univers 08:00:00 08:00:00 ity of [facility] 2022-02-04 2022-02-07 Inpatient P CURTIS IGOR [facility] ANTHONY [id number] Univers 11:11:00 19:30:00 ity of [facility] 2022-02-04 2022-02-07 [facility] Igor Acevedo [facility] 1.2.840.114 [id number] Univers 11:11:00 19:30:00 Encounter Naveen GILBERT 350.1.13.10 it[place] [id number] [place] [id number] Shepherd 2022-02-05 2022-02-05 Anesthesia Geoffrey Nj [facility] 1.2.840.1 [id number] Univers 05:49:00 23:34:00 Event Carlos Gipson 350.1.13.10 [facility] [place] [id number] [place] [id number] Branch 2022-02-04 2022-02-04 Anesthesia Debora [facility] 1.2.840.114 [id number] Univers 19:34:25 19:34:25 Event Brodie GILBERT 350.1.13.10 ity of [place]2.[place] [id number] [place] [id number] Branch 2022-02-04 2022-02-04 Outpatient P [facility] [id number] Univers 08:00:00 08:00:00 ity of [facility] 2022-02-04 2022-02-04 Orders Doctor SANDRA 1.2.840.114 [id number] Univers 00:00:00 00:00:00 Only Unassigned, SALMA 350.1.13.10 ity of [place] [facility] 4.2.7.2.686 [place] [id number] [address] 2022-01-30 2022-01-30 Outpatient R KATIE [facility] [id number] Univers 16:30:00 17:09:13 [facility] 2022-01-30 2022-01-30 Routine Igor Acevedo [facility] 1.2.840.114 [id number] Univers 16:30:00 17:09:13 Naomie Wilson [place] 350.1.13.10 ity of [place] [facility] [id number] Dc dical [address] 2022-01-30 2022-01-30 Orders Doctor SANDRA 1.2.840.114 [id number] Univers 00:00:00 00:00:00 Only Unassigned, SALMA 350.1.13.10 ity of [place] [facility] 4.2.7.2.686 [place]ij[place] as [phone] [address] 2022-01-28 2022-01-28 Diving Supervisor Ultrasound, [facility] 1.2 .840.114 [id number] Univers 08:00:00 08:45:00 Visit Ron Avila [employer]EL[employer] 350.1. 13.10 ity of Kathy Motley uvboe [facility] 4.2.7.2 .686 [place] MATERNAL [id number] Med ical & CHILD [address] [place] [address] 2022-01-28 2022-01-28 Outpatient P TIESHA [facility] [id number] Univers 08:00:00 08:33:[address] [facility] 2022-01-28 2022-01-28 Letter Tiesha [facility] 1.2.840.114 [id number] Univers 00:00:00 00:00:00 (Out) Ángely [employer] DEVELOPER 350.1.13.10 [facility] 4.2.7.2.[place] [id number] Med ical & CHILD 107 [facility] 2022-01-21 2022-01-21 Diving Supervisor Ultrasound, [facility] 1.2 .840.114 [id number] Univers 09:15:00 10:00:00 Visit Cerda Ron Hyatt [employer] DEVEL[employer] 350.1. 13.10 ity of AbhiCesar man REGIONAL 4.2.7.2.686 [place] MATERNAL [id number] [facility] & CHILD [address] [place] [address] 2022-01-21 2022-01-21 Outpatient P ABHI [facility] [id number] Univers 09:15:00 09:45:[address] [facility] 2022-01-16 2022-01-16 Routine Igor Acevedo [facility] [id number] Univers 13:30:00 14:17:24 Cam [place] 350.1.13.10 ity of Visit [place] 4.2.7.2.686 Lindy OQUENDO [id number] Dc dic[address] 2022-01-16 2022-01-16 Outpatient R IGOR ACEVEDO [facility] [id number] Univers 13:30:00 14:17:24 ity of [facility] 2022-01-14 2022-01-14 Outpatient P TIESHA [facility] [id number] Univers 08:00:00 10:18:[address] [facility] 2022-01-14 2022-01-14 Diving Supervisor Ultrasound, [facility] 1.2 .840.114 [id number] Univers 08:00:00 08:45:00 Visit Jovany EdmarRon [employer] DEVEL[employer] 350.1. 13.10 ity of Kathy Motley [facility] 4.2.7.2 .686 [place] MATERNAL [id number] [facility] ical & CHILD [address] [place] [address] 2022-01-07 2022-01-07 Outpatient P TIESHA [facility] [id number] Univers 08:00:00 08:29:02 ÁNGELGurvinder [facility] 2022-01-07 2022-01-07 Diving Supervisor Ultrasound, [facility] 1.2 .840.114 [id number] Univers 08:00:00 08:29:02 Visit Ron Avila [employer]EL[employer] 350.1. 13.10 ity of Kathy Motley aureliano [facility] 4.2.7.2 .686 [place] MATERNAL [id number] [facility] & CHILD [address] [place] [address] 2022-01-03 2022-01-03 Outpatient R KATIE [facility] [id number] Univers 16:30:00 16:30:00 [facility] [place] 2021-12-31 2021-12-31 Routine Katie [facility] 1.2.313.873 [id number] Univers 09:15:00 10:23:34 [facility] 350.1.13.10 it[place] [phone] [address] 2021-12-31 2021-12-31 Diving Supervisor Ultrasound, [facility] 1.2 .840.114 [id number] Univers 08:00:00 08:45:00 Visit Ron Avila [employer]EL[employer] 350.1. 13.10 ity [facility] 4.2.7.2.686 Vijay as MATERNAL [phone] [facility] & CHILD [address] [place] [address] 2021-12-31 2021-12-31 Outpatient P CERDA [facility] [id number] Univers 08:00:00 08:00:00 ALEJANDRA it y of SRON [facility] 2021-12-24 2021-12-24 Outpatient P GENNY [facility] [id number] Univers 08:00:00 09:13:40 KJ [facility] 2021-12-24 2021-12-24 Diving Supervisor Ultrasound, [facility] 1.2 .840.114 [id number] Univers 08:00:00 09:13:40 Visit Ron Avila [employer] DEVEL[employer] 350.1. 13.10 ity of Kj Doll [facility] 4.2.7.2.686 [place] MATERNAL [phone] [facility] ical & CHILD [address] [place] [address] 2021-12-20 2021-12-20 Outpatient R [facility] [id number] Univers 08:00:00 08:00:[address] [facility] 2021-12-19 2021-12-19 Outpatient R CURTIS [facility] [id number] Univers 15:30:00 16:05:[address] [facility] 2021-12-19 2021-12-19 Routine [facility] 1.2.237.790 [id number] Univers 15:30:00 16:05:03 Cam [place] 350.1.13.10 ity of Visit [place] 4.2.7.2.686 Vijaymichelle vinod WILLSESSSAVAGE [phone] Dc dical [address] 2021-12-19 2021-12-19 Outpatient R ACEVEDO IGOR [facility] [id number] Univers 15:30:00 15:30:[address] [facility] 2021-12-17 2021-12-17 [facility] [id number] Univers 08:00:00 08:40:35 ALEJANDRA it y of S, [facility] 2021-12-17 2021-12-17 Diving Supervisor Ultrasound, [facility] 1.2 .840.114 [id number] Univers 08:00:00 08:40:35 Visit Jovany LordmaykelRon parson [employer] DEVELOPER 350.1. 13.10 ity of REGIONAL 4.2.7.2.686 [place]ijay as MATERNAL [phone] [facility] ical & CHILD [address] [place] [address] 2021-12-17 2021-12-17 Outpatient [facility] [id number] Univers 08:00:00 08:00:00 ALEJANDRA it y of S, VELASQUEZ [facility] 2021-12-12 2021-12-12 Diving Supervisor 2, Adc Lab [facility] 1.2.840.114 [id number] Univers 08:30:00 09:31:07 Visit Igor Acevedo 350.1.13.10 ity of [facility] 4.[place] [phone] [facility] 2021-12-12 2021-12-12 Outpatient R CURTIS IGOR [facility] [id number] Univers 08:30:00 08:30:00 ity of [facility] 2021-12-12 2021-12-12 Outpatient R CURTIS [facility] [id number] Univers 08:30:00 08:30:[address] [facility] 2021-12-12 2021-12-12 Case Katie [facility] 1.2.086.236 [id number] Univers 00:00:00 00:00:00 Management Naomie GILBERT 350.1.13.10 ity of [facility] 4.[place] [phone] Dc dic[address] 2021-12-10 2021-12-10 Diving Supervisor Ultrasound, [facility] 1.2 .840.114 [id number] Univers 08:00:00 08:45:00 Visit Ron Avila [employer] DEVELOPER 350.1. 13.10 [facility] 4.2.7.2.686 [place] MATERNAL [phone] Med ical & CHILD [address] [place] [address] 2021-12-10 2021-12-10 Outpatient P ABHI [facility] [id number] Univers 08:00:00 08:43:[address] [facility] 2021-12-10 2021-12-10 Telephone CurtisKallieen [facility] 1.2.840.114 [id number] Univers 00:00:00 00:00:00 Naveen GILBERT 350.1.13.10 i ty of [place] [phone] Dc dical NAL [address] [facility] 2021-12-07 2021-12-07 Outpatient P EVA [facility] [id number] Univers 09:00:00 10:10:57 NARCISA [facility] 2021-12-07 2021-12-07 Diving Supervisor 3, [facility] Room UNIVERSIT 1 .2.840.114 [id number] Univers 09:00:00 10:10:57 Visit Kj Doll [facility] 350.1.13.10 ity [facility] 4.2.7.2.686 [place] [phone] [address] 2021-12-07 2021-12-07 Outpatient P EVA [facility] [id number] Univers 09:00:00 09:00:00 NARCISA [facility] 2021-12-05 2021-12-05 Outpatient P [facility] [id number] Univers 10:45:00 10:45:00 [facility] 2021-12-05 2021-12-05 Outpatient P [facility] [id number] Univers 08:15:00 08:15:00 [facility] 2021-12-03 2021-12-03 Outpatient [facility] [id number] Univers 08:00:00 08:33:43 ALEJANDRA it y of RON Brock [facility] 2021-12-03 2021-12-03 Diving Supervisor Ultrasound, [facility] 1.2 .840.114 [id number] Univers 08:00:00 08:33:43 Visit Ron Avila [employer] DEVELOPER 350.1. 13.10 [facility] 4.2.7.2.686 [place]ay [place] MATERNAL [phone] Med ical & CHILD [address] [place] [address] 2021-12-03 2021-12-03 Outpatient [facility] [id number] Univers 08:00:00 08:00:00 ALEJANDRA it y of RON Brock [facility] 2021-12-03 2021-12-03 Letter [facility] 1.2.840.114 [id number] Univers 00:00:00 00:00:00 (Out) Alejandra [employer] DEVELOPER 350.1.13.10 ity of Ron brock [facility] 4.2.7.2.686 Vijay as MATERNAL [phone] [facility] & CHILD [address] [place] [address] 2021-11-27 2021-11-27 Outpatient P IVETH BARNETTTA [facility] [id number] Univers 08:30:00 10:00:37 ERICKA ALEE [facility] 2021-11-27 2021-11-27 Diving Supervisor 2, [facility] Room UNIVERSIT 1 .2.840.114 [id number] Univers 08:30:00 10:00:37 Visit LeonardCelestino herrera [facility] 350.1.13. 10 ity of Alee Barnett [facility] 4.2.7.2.686 [place] [phone] [address] 2021-11-27 2021-11-27 Outpatient P [facility] [id number] Univers 08:30:00 08:30:00 ALEE BARNETT [facility] 2021-11-22 2021-11-22 Outpatient P JOANN [facility] [id number] Univers 13:45:00 15:39:15 MONIKA [facility] 2021-11-22 2021-11-22 Diving Supervisor 5, [facility] Room UNIVERSIT 1 .2.840.114 [id number] Univers 13:45:00 15:39:15 Visit LeonardCelestino [facility] 350.1.13. 10 ity of Monika Min [facility] 4.2.7.2.686 [place] [id number] [address] 2021-11-22 2021-11-22 [facility] [id number] Univers 13:45:00 13:45:00 MONIKA [facility] 2021-11-21 2021-11-21 Outpatient R IGOR ACEVEDO [facility] [id number] Univers 15:30:00 16:48:[address] [facility] 2021-11-21 2021-11-21 Outpatient IGOR BEASLEY [facility] [id number] Univers 15:30:00 16:48:30 ity of [facility] 2021-11-21 2021-11-21 Routine Naomie Wilson [facility] 1.2.840.11 [id number] Univers 15:30:00 16:48:30 Igor Acevedo [place] 350.1.13.10 ity of Visit [place] [phone] [address] 2021-11-19 2021-11-19 Outpatient P HERRERA, [facility] [id number] Univers 08:30:00 08:30:00 [facility] 2021-11-12 2021-11-12 Outpatient P ALEXSANDRA, [facility] [id number] Univers 08:30:00 09:06:[address] [facility] 2021-11-12 2021-11-12 Diving Supervisor 5, [facility] Room UNIVERSIT 1 .2.840.114 [id number] [facility] 08:30:00 09:06:11 Visit Leonard Celestino Josse HEALTH 350.1.13. 10 ity of Monika Min [facility] 4.2.7.2.686 [place] [phone] [address] 2021-11-05 2021-11-05 Outpatient P HERRERA, [facility] [id number] Univers 08:00:00 08:42:[address] [facility] 2021-11-05 2021-11-05 Diving Supervisor 5, [facility] Room UNIVERSIT 1 .2.840.114 [id number] Univers 08:00:00 08:42:07 Visit Leonard, Celestino Josse Y HEALTH 350.1.13. 10 ity of CL[place] [id number] [address] 2021-11-05 2021-11-05 Letter Herrera, UNIVERSIT 1.2.840.114 [id number] Univers 00:00:00 00:00:00 (Out) Celestino Josse Y HEALTH 350.1.13.10 ity of CL[place]ICS 4[place] [phone] [address] 2021-10-29 2021-10-29 Diving Supervisor 1, [facility] Room UNIVERSIT 1 .2.840.114 [id number] Univers 10:45:00 12:44:52 Visit Cesar Bragg [facility] 350.1.13.10 ity of [facility] 4.2.7.2.[place] [phone] [address] 2021-10-29 2021-10-29 Outpatient P [facility] [id number] Univers 10:45:00 10:45:00 [facility] 2021-10-29 2021-10-29 Outpatient P ABHI [facility] [id number] Univers 10:45:00 10:45:00 [facility] 2021-10-24 2021-10-24 Outpatient R KATIE [facility] [id number] Univers 15:30:00 16:08:35 NAOMIE [facility] 2021-10-24 2021-10-24 [facility] 1.2.368.998 [id number] Univers 15:30:00 16:08:35 Naomie GILBERT 350.1.13.10 ity of Visit [place] 4.2.7.2.[place] [phone] [address] 2021-10-12 2021-10-12 Diving Supervisor Ultrasound, [facility] 1.2 .840.114 [id number] Univers 14:30:00 15:42:41 Visit Ria Guevara [employer] DEVELOPER 350.1.13.10 ity of REGIONAL 4.2.7.2.686 Vijay as MATERNAL [phone] Med ical & CHILD [address] [place] [address] 2021-10-12 2021-10-12 Outpatient P RIA GUEVARA [facility] [id number] Univers 14:30:00 14:30:00 RIA GUEVARA [facility] 2021-10-01 2021-10-01 Patient Graham [facility] 1.2.840.114 [id number] Univers 00:00:00 00:00:00 Secure Msg Brinda GILBERT 350.1.13.10 ity of [place] 4.2.7.2.[place] [phone] Dc dic[address] 2021-10-01 2021-10-01 Patient Graham [facility] 1.2.840.114 [id number] Univers 00:00:00 00:00:00 Secure Msg Brinda FARZANEHCYNTHIA 350.1.13.10 ity of [place] 4.2.7.2.[place] [id number] Dc dic[address] 2021-09-27 2021-09-27 Outpatient R IGOR ACEVEDO [facility] [id number] Univers 15:00:00 15:48:07 ity of [facility] 2021-09-27 2021-09-27 Routine Igor cAevedo [facility] 1.2.125.847 [id number] Univers 15:00:00 15:48:07 Naveen GILBERT 350.1.13.10 ity of Visit [place] 4.2.7.2.[place] [phone] Dc dic[address] 2021-09-27 2021-09-27 Orders Doctor SANDRA 1.2.840.114 [id number] Univers 00:00:00 00:00:00 Only Unassigned, SALMA 350.1.13.10 ity of [place] [facility] 4.2.7.2.686 Vijay as [phone] [address] 2021-09-20 2021-09-20 Outpatient Geoffrey WILSON [facility] [id number] Univers 14:00:00 14:00:[address] [facility] 2021-09-20 2021-09-20 Outpatient Geoffrey WILSON [facility] [id number] Univers 14:00:00 14:00:[address] [facility] 2021-09-13 2021-09-13 Diving Supervisor Moises, Edu Lab Main [facility] 1.2.8 40.114 [id number] Univers 17:15:00 17:30:00 Visit Igor Acevedo 350.1.13.10 ity of [place] 4.2.7.2.[place] [phone] Dc dical NAL [address] [facility] 2021-09-13 2021-09-13 Outpatient R IGOR ACEVEDO [facility] [id number] Univers 17:15:00 17:15:00 ity of [facility] 2021-09-13 2021-09-13 Outpatient R IGOR ACEVEDO [facility] [id number] Univers 17:15:00 17:15:00 ity of [facility] 2021-09-13 2021-09-13 [facility] 1.2.846.138 [id number] Univers 16:15:00 16:50:47 Naomie GILBERT 350.1.13.10 ity of Visit [place] 4.2.7.2.[place] [phone] [address] 2021-09-10 2021-09-10 Outpatient R CURTIS [facility] [id number] Univers 13:45:00 13:45:00 ity of [facility] 2021-08-22 2021-08-22 Outpatient P [facility] [id number] Univers 10:30:00 10:30:00 ity of [facility] 2021-08-21 2021-08-21 Outpatient R CURTIS IGOR [facility] [id number] Univers 13:15:00 14:15:18 ity of [facility] 2021-08-21 2021-08-21 Routine [facility] 1.2.431.816 [id number] Univers 13:15:00 14:15:18 Cam ANGLECYNTHIA 350.1.13.10 ity of Visit [place] 4.[place].2.[place] [id number] Dc dical [address] 2021-08-13 2021-08-13 Outpatient R KATIE [facility] [id number] Univers 16:00:00 16:37:[address] [facility] 2021-08-13 2021-08-13 [facility] 1.2.416.977 [id number] Univers 16:00:00 16:37:38 Naomie [place] 350.1.13.10 ity of Visit [place] 4.2.7.2.[place] [phone] Dc dical NAL [address] [facility] 2021-08-13 2021-08-13 Outpatient R KATIE [facility] [id number] Univers 16:00:00 16:00:[address] [facility] 2021-07-25 2021-07-25 Nurse Naomie Wilson [facility] 1.2.840.11 [id number] Univers 14:00:00 14:58:37 Visit Igor Acevedo 350.1.13.10 ity of [place] 4.2.7.2.[place] [phone] Dc dical NAL [address] [place] [address] 2021-07-25 2021-07-25 Outpatient R IGOR ACEVEDO [facility] [id number] Univers 14:00:00 14:00:00 ity of [facility] 2021-07-25 2021-07-25 Telephone Katie [facility] 1.2.840.114 [id number] Univers 00:00:00 00:00:00 Naomie GILBERT 350.1.13.10 i ty of [place] 4.2.7.2.[place] [phone] Dc dical NAL [address] [facility] 2021-07-24 2021-07-24 Case Katie [facility] 1.2.474.785 [id number] Univers 00:00:00 00:00:00 Management Naomie GILBERT 350.1.13.10 ity [facility] 4.2.7.2.[place] [phone] Dc dical NAL [address] [facility] 2021-07-23 2021-07-23 Diving Supervisor 2, Adc Lab [facility] 1.2.840.114 [id number] Univers 08:30:00 08:45:00 Visit Curtis Igor Naveen GILBERT 350.1.13.10 ity of [place] 4.2.7.2.[place] [phone] Dc dicky NAL [address] [facility] 2021-07-232021-07-23 Outpatient R IGOR ACEVEDO [facility] [id number] Univers 08:30:00 08:30:00 ity of [facility] 2021-07-17 2021-07-17 Telephone Katie CARAS 1.2.840.114 [id number] Univers 00:00:00 00:00:00 Naomie MOYCYNTHIA 350.1.13.10 i ty of [place] 4.2.7.2.[place] [id number] Dc dical NAL [address] [facility] 2021-07-13 2021-07-13 Diving Supervisor 2, Adc Lab [facility] 1.2.840.114 [id number] Univers 13:00:00 13:15:00 Visit Igor Acevedo 350.1.13.10 ity of [place] 4.[place].2.[place] [id number] Dc dical [facility] [address] [facility] 2021-07-13 2021-07-13 Outpatient R IGOR ACEVEDO [facility] [id number] Univers 13:00:00 13:00:00 ity of [facility] 2021-07-13 2021-07-13 Case ALYCE Wilson 1.2.639.688 [id number] Univers 00:00:00 00:00:00 Management Naomie PEDIATRIC 350.1.13.10 ity of [place]2.[place].2.[place] [phone] [place] [address] [address] [facility] 2021-07-12 2021-07-12 Office Igor Acevedo [facility] 1.2.389.176 [id number] Univers 14:30:00 15:45:39 Visit Naveen GILBERT 350.1.13.10 i ty of [place] 4.2.7.2.[place] [phone] Dc dical NAL [address] [facility] 2021-07-12 2021-07-12 Outpatient R IGOR ACEVEDO [facility] [id number] Univers 14:30:00 15:45:39 ity of [facility] 2021-07-12 2021-07-12 Outpatient R IGOR ACEVEDO [facility] [id number] Univers 14:30:00 14:30:00 ity of [facility] 2021-07-12 2021-07-12 Outpatient R IGOR ACEVEDO [facility] [id number] Univers 14:30:00 14:30:00 ity of [facility] 2021-07-11 2021-07-11 Outpatient R IGOR ACEVEDO [facility] [id number] Univers 16:57:15 23:59:00 ity of [facility] 2021-07-11 2021-07-11 Outpatient R CURTIS [facility] [id number] Univers 16:57:15 23:59:00 ity of [facility] 2021-07-11 2021-07-11 [facility] Igor Acevedo [facility] 1.2.840.114 [id number] Univers 16:45:00 23:59:00 Encounter Naveen GILBERT 350.1.13.10 ity of [place] 4.2.7.2.[place] GR[place]DY [id number] [facility] [address] 2021-07-10 2021-07-10 Diving Supervisor 2, Adc Lab [facility] 1.2.840.114 [id number] Univers 14:00:00 14:15:00 Visit Igor Acevedo Naveen GILBERT 350.1.13.10 ity [facility] 4.2.7.2.686 [facility] [phone] [facility] [address] [facility] 2021-07-10 2021-07-10 Outpatient R IGOR ACEVEDO [facility] [id number] Univers 14:00:00 14:00:00 ity of [facility] 2021-07-10 2021-07-10 Outpatient R KATIE [facility] [id number] Univers 14:00:00 14:00:00 NAOMIE ity of [facility] 2021-07-06 2021-07-06 [facility] 1.2.840.114 [id number] Univers 00:00:00 00:00:00 Management Emmett ANN 350.1.13.10 ity of [facility] 4.2.7.2.686 [facility] [phone] [facility] [address] 2021-07-06 2021-07-06 Case Allen [facility] LACEY 1.2.840.114 [id number] Univers 00:00:00 00:00:00 Management Emmett ANN 350.1.13.10 ity of [place] 4[place]2.[place].2.[place] HE[place] [id number] [facility] [address] 2021-07-05 2021-07-05 Diving Supervisor 2, Adc Lab [facility] 1.2.840.114 [id number] Univers 14:45:00 15:00:00 Visit Igor Acevedo 350.1.13.10 [facility] 4.2.7.2.[place] [phone] Dc dical NAL [address] [facility] 2021-07-05 2021-07-05 Outpatient R IGOR ACEVEDO [facility] [id number] Univers 14:45:00 14:45:00 ity of [facility] 2021-07-04 2021-07-04 Outpatient R CURTIS [facility] [id number] Univers 13:30:00 14:34:12 ity of [facility] 2021-07-04 2021-07-04 Initial Acevedo [facility] 1.2.642.701 [id number] Univers 13:30:00 14:34:12 Naveen GILBERT 350.1.13.10 ity of [facility] 4.2.7.2.[place] [phone] Dc dical NAL [address] [facility] 2021-07-04 2021-07-04 Orders Doctor SANDRA 1.2.840.114 [id number] Univers 00:00:00 00:00:00 Only Unassigned, SALMA 350.1.13.10 ity of [place] [facility] 4.2.7.2.686 Vijay as [phone] [facility] [address] 2021-06-30 2021-06-30 Diving Supervisor Moises, Adc Lab Main [place] 1.2.8 40.114 [id number] Univers 11:30:00 11:45:00 Visit Meri Stanley 350.1.13.10 ity [facility] 4.2.[place].2.[place] [id number] Dc dical [address] 2021-06-30 2021-06-30 Outpatient R [facility] [id number] Univers 11:30:00 11:30:00 [facility] 2021-06-30 2021-06-30 Outpatient R JADEN, [facility] [id number] Univers 11:30:00 11:30:00 MERI [facility] 2021-06-28 2021-06-28 Diving Supervisor 2, Adc Lab [facility] 1.2.840.114 [id number] Univers 13:45:00 14:00:00 Visit Naomie Wilson 350.1.13.10 ity of [facility] 4.2.7.2.[place] [phone] [address] 2021-06-28 2021-06-28 Outpatient R [facility] [id number] Univers 13:45:00 13:45:00 [facility] 2021-06-28 2021-06-28 [facility] [id number] Univers 13:45:00 13:45:00 NAOMIE [facility] 2021-06-26 2021-06-26 Diving Supervisor 2, Adc Lab [facility] 1.2.840.114 [id number] Univers 13:45:00 14:00:00 Visit Naomie Wilson 350.1.13.10 ity of [place] [id number] [address] 2021-06-26 2021-06-26 [facility] [id number] Univers 13:45:00 13:45:00 NAOMIE [facility] 2021-06-26 2021-06-26 [facility] 1.2.828.948 [id number] Univers 13:00:00 13:38:16 Visit Naomie GILBRET 350.1.13.10 i ty of [place].2.[place] [phone] Dc dic[address] 2021-06-26 2021-06-26 Outpatient R KATIE [facility] [id number] Univers 13:00:00 13:38:[address] [facility] 2021-06-26 2021-06-26 Orders Doctor SANDRA [id number] Univers 00:00:00 00:00:00 Only Unassigned, SALMA 350.1.13.10 [facility] 4.2.7.2.686 [place] as [phone] [address] 2020-09-20 2020-09-20 Diving Supervisor 2, Adc Lab [facility] [id number] Univers 14:45:08 15:00:08 Visit Naomie Wilson 350.1.13.10 [place] [phone] Dc dical nal 353 [facility] 2020-09-20 2020-09-20 Office Katie [facility] [id number] Univers 13:34:17 14:41:28 Visit Naomie Gilbert 350.1.13.10 i [place] [phone] Dc dical nal 134 [facility] 2020-09-20 2020-09-20 Outpatient R KATIE [facility] [id number] Univers 13:30:00 13:30:[address] [facility] 2020-09-08 2020-09-08 Outpatient IGOR ACEVEDO [facility] [id number] Univers 13:00:00 13:00:[id number] [facility] 2020-09-08 2020-09-08 Outpatient R IGOR ACEVEDO [facility] [id number] Univers 13:00:00 13:00:[address] [facility] 2019-10-07 2019-10-07 Laboratory Lab, Adc Fam Pob I [facility] [id number]. [id number] Univers 17:40:00 18:00:00 Only Donna Apodaca 350.1.13.10 ity of [place] 4.2.7.2.686 [place] [phone] Dc dical [address] [employer] 2019-10-07 2019-10-07 Outpatient Geoffrey MERLENEMIHAI, [facility] [id number] Univers 17:40:00 17:40:[address] [facility] Results Test Description Test Time Test Comments Results Result Comments Source POCT TEST 2022-09-23 19:45:00 Test Item Value Reference Range Interpretation Comme nts POCT PREG (test code = 1605) Negative On board controls acceptable with C Line (test code = 3574) Yes POCT PREG LOT # (test code = 3575) POCT PREG TEST DATE (test code = 3576) Lab Interpretation (test code = 04682-0) [id number] 19:45:00 Test Item Value Reference Range Interpretation Comments POCT PREG (test code = 1605) Negative On board controls acceptable with C Yes Line (test code = 3574) POCT PREG LOT # (test code = 3575) POCT PREG TEST DATE (test code = 3576) Lab Interpretation (test code = Normal 41513-7) [id number] 21:44:00 Test Item Value Reference Range Interpretation Comments POCT PREG (test code = 1605) Negative On board controls acceptable with C Yes Line (test code = 3574) POCT PREG LOT # (test code = 3575) POCT PREG TEST DATE (test code = 3576) [facility] IMMUNE [id number] 19:01:14 Test Item Value Reference Range Interpretation Comments RHIG CANDIDATE? No- see comment Patient i s not a (test code = candidate for R hIg- 5055) Patient is Rh Positive.Perfor med at [facility] Laboratory Services - ADC Blood [address] [place] [id number] Free: [phone] A No. [id number] [facility] with [id number] 17:08:32 Test Item Value Reference Range Interpretation Comments WBC (test code = See_Comment H [Automated 6690-2) message] The system which generated this result transmit [place] reference range : 4.30 - 11.10 10*3/?L. The reference range was not used to interpret this result as normal/abnormal . RBC (test code = See_Comment L [Automated 789-8) message] The system which generated this result transmit [place] reference range : 3.93 - 5.25 10*6/?L. The reference range was not used to interpret this result as normal/abnormal . HGB (test code = 10.6 g/dL 11.6-15.0 L 718-7) HCT (test code = 31.3 % 35.7-45.2 L 4544-3) MCV (test code = 83.9 fL 80.6-95.5 787-2) MCH (test code = 28.4 pg 25.9-32.8 785-6) MCHC (test code = 33.9 g/dL 31.6-35.1 786-4) RDW-SD (test code = 46.5 fL 39.0-49.9 27509-6) RDW-CV (test code = 15.5 % 12.0-15.5 788-0) PLT (test code = See_Comment [Automated 777-3) message] The system which generated this result transmit [place] reference range : 166 - 358 10*3/ ?L. The reference range was not u sed to interpret th is result as normal/abnormal . MPV (test code = 11.0 fL 9.5-12.9 27648-3) NRBC/100 WBC (test See_Comment [Automat ed code = 7444819371) message] The system which generated this result transmit [place] reference range : 0.0 - 10.0 /100 WBCs. The reference range was not used to interpret this result as normal/abnormal . NRBC x10^3 (test code See_Comment [Auto mated = 9949987919) message] The system which generated this result transmit [place] reference range : 10*3/?L. The reference range was not used to interpret this result as normal/abnormal . GRAN MAT (NEUT) % 79.9 % (test code = 770-8) IMM GRAN % (test code 0.60 % = 5413221737) LYMPH % (test code = 11.4 % 736-9) MONO % (test code = 7.5 % 5905-5) EOS % (test code = 0.3 % 713-8) BASO % (test code = 0.3 % 706-2) GRAN MAT x10^3(ANC) 11.22 10*3/uL 1.88-7.09 H (test code = 3739571020) IMM GRAN x10^3 (test 0.09 10*3/uL 0.00-0.06 H code = 1103128994) LYMPH x10^3 (test code 1.60 10*3/uL 1.32-3.29 = 731-0) MONO x10^3 (test code 1.06 10*3/uL 0.33-0.92 H = 742-7) EOS x10^3 (test code = 0.04 10*3/uL 0.03-0.39 711-2) BASO x10^3 (test code 0.04 10*3/uL 0.01-0.07 = 704-7) Lab Interpretation Abnormal (test code = 91692-0) [facility] GLUCOSE (AUTOMATED)2022-02-06 04:01:44 Test Item Value Reference Range Interpretation Comments POCT GLU (test code = 1487171971) 140 mg/dL 70-110 H Lab Interpretation (test code = Abnormal 09501-1) [facility] GLUCOSE (AUTOMATED)2022-02-06 02:03:38 Test Item Value Reference Range Interpretation Comments POCT GLU (test code = 7741649503) 114 mg/dL 70-110 H Lab Interpretation (test code = Abnormal 37824-7) [facility] GLUCOSE (AUTOMATED)2022-02-06 00:12:38 Test Item Value Reference Range Interpretation Comments POCT GLU (test code = 1512573039) 126 mg/dL 70-110 H Lab Interpretation (test code = Abnormal 54730-5) [facility] GLUCOSE (AUTOMATED)2022-02-06 00:12:33 Test Item Value Reference Range Interpretation Comments POCT GLU (test code = 9584847680) 108 mg/dL 70-110 Lab Interpretation (test code = Normal 60182-7) [facility] GLUCOSE (AUTOMATED)2022-02-05 18:21:17 Test Item Value Reference Range Interpretation Comments POCT GLU (test code = 7980359905) 96 mg/dL 70-110 Lab Interpretation (test code = Normal 52173-8) [facility] GLUCOSE (AUTOMATED)2022-02-05 14:05:28 Test Item Value Reference Range Interpretation Comments POCT GLU (test code = 9273108132) 111 mg/dL 70-110 H Lab Interpretation (test code = Abnormal 36161-9) [facility] GLUCOSE (AUTOMATED)2022-02-05 10:10:46 Test Item Value Reference Range Interpretation Comments POCT GLU (test code = 4681886420) 124 mg/dL 70-110 H Lab Interpretation (test code = Abnormal 78591-7) [facility] OR FRANKLYN LORD - [id number] 09:18:11 Test Item Value Reference Range Interpretation Comments RPR (Qualitative) (test code = Nonreactive Nonreactive 84781-1) Lab Interpretation (test code = Normal 79988-2) [facility] GLUCOSE (AUTOMATED)2022-02-05 06:04:14 Test Item Value Reference Range Interpretation Comments POCT GLU (test code = 4488050681) 94 mg/dL 70-110 Lab Interpretation (test code = Normal 83181-7) [facility] GLUCOSE (AUTOMATED)2022-02-05 02:02:05 Test Item Value Reference Range Interpretation Comments POCT GLU (test code = 3454225176) 107 mg/dL 70-110 Lab Interpretation (test code = Normal 44460-7) [facility] CenterHepatitis B Surface [id number] 22:35:38 Test Item Value Reference Range Interpretation Comments HBsAg Semi-Quantitative (test code = Negative Negative 5195-3) [facility] GLUCOSE (AUTOMATED)2022-02-04 22:13:01 Test Item Value Reference Range Interpretation Comments POCT GLU (test code = 1549652088) 94 mg/dL 70-110 Lab Interpretation (test code = Normal 66431-9) [facility] CenterHIV [facility]2 AG-AB WITH [id number] 20:29:16 Test Item Value Reference Range Interpretation Comments HIV Negative Negative Semi-quantitative (test code = 36998-4) CLARICE (test code = Non-reactive for HIV-1 CLARICE) antigen and HIV-1/HIV-2 antibodies. ?No laboratory evidence of HIV infection. ?Repeat in 2-4 weeks if acute HIV infection is suspected. [facility] CenterType and Screen - ONCE [id number] 19:30:58 Test Item Value Reference Range Interpretation Comments ABO & RH (test code O Positive Performe d at [facility] = 20) Laboratory Serv [facility] Blood Bank[address] [place], [place] [id number] Free: [phone] A No. [id number] IAT (test code = Negative Performed a t [facility] 1185) Laboratory Serv [facility] Blood [facility] [place], [place] [address]Toll Free: [phone] A No. [id number] [facility]2022-02-04 18:48:25 Test Item Value Reference Range Interpretation Comments POCT GLU (test code = 6816090735) 95 mg/dL 70-110 Lab Interpretation (test code = Normal 11124-9) [facility] with [id number] 18:43:15 Test Item Value Reference Range Interpretation Comments WBC (test code = See_Comment [Automated 4990-2) message] The sy stem which generated this result transmitted reference range : 4.30 - 11.10 10*3/?L. The reference range was not used to interpret this result as normal/abnormal . RBC (test code = See_Comment [Automated 259-8) message] The sy stem which generated this result transmitted reference range : 3.93 - 5.25 10*6/?L. The reference range was not used to interpret this result as normal/abnormal . HGB (test code = 12.0 g/dL 11.6-15.0 718-7) HCT (test code = 34.8 % 35.7-45.2 L 4544-3) MCV (test code = 83.1 fL 80.6-95.5 787-2) MCH (test code = 28.6 pg 25.9-32.8 785-6) MCHC (test code = 34.5 g/dL 31.6-35.1 786-4) RDW-SD (test code = 45.9 fL 39.0-49.9 04720-0) RDW-CV (test code = 15.2 % 12.0-15.5 788-0) PLT (test code = See_Comment [Automated 777-3) message] The sy stem which generated this result transmitted reference range : 166 - 358 10*3/ ?L. The reference r debbie was not used to interpret this result as normal/abnormal . MPV (test code = 10.2 fL 9.5-12.9 90797-4) NRBC/100 WBC (test See_Comment [Automat ed code = 6901351239) message] The system which generated this result transmitted reference range : 0.0 - 10.0 /100 WBCs. The refer ence range was not u sed to interpret th is result as normal/abnormal . NRBC x10^3 (test code See_Comment [Auto mated = 9881300966) message] The s ystem which generated this result transmitted reference range : 10*3/?L. The reference range was not used to interpret this result as normal/abnormal . GRAN MAT (NEUT) % 74.4 % (test code = 770-8) IMM GRAN % (test code 0.40 % = 0352315638) LYMPH % (test code = 16.6 % 736-9) MONO % (test code = 7.9 % 5905-5) EOS % (test code = 0.6 % 713-8) BASO % (test code = 0.1 % 706-2) GRAN MAT x10^3(ANC) 4.98 10*3/uL 1.88-7.09 (test code = 4230046132) IMM GRAN x10^3 (test 0.03 10*3/uL 0.00-0.06 code = 2488307745) LYMPH x10^3 (test code 1.11 10*3/uL 1.32-3.29 L = 731-0) MONO x10^3 (test code 0.53 10*3/uL 0.33-0.92 = 742-7) EOS x10^3 (test code = 0.04 10*3/uL 0.03-0.39 711-2) BASO x10^3 (test code 0.01-0.07 = 704-7) Lab Interpretation Abnormal (test code = 37854-5) [facility] URINALYSIS W/O SPECIFIC [id number] 22:38:00 Test Item Value Reference Range Interpretation Comments POCT PH U (test code = 3254) n/a 5-8 POCT U LEUK EST (test code = n/a Negative - Negative 3263) POCT U NIT (test code = 3262) n/a Negative - Negative POCT U PROT (test code = 3259) negative Negative - Negative POCT U GLU (test code = 3256) negative Negative - Negative POCT U KETONE (test code = 3258) n/a Negative - Negative POCT U BLD (test code = 3257) n/a Negative - Negative [facility] URINALYSIS W/O SPECIFIC [id number] 18:47:00 Test Item Value Reference Range Interpretation Comments POCT PH U (test code = 3254) n/a 5-8 POCT U LEUK EST (test code = n/a Negative - Negative 3263) POCT U NIT (test code = 3262) n/a Negative - Negative POCT U PROT (test code = 3259) negative Negative - Negative POCT U GLU (test code = 3256) negative Negative - Negative POCT U KETONE (test code = 3258) n/a Negative - Negative POCT U BLD (test code = 3257) n/a Negative - Negative [facility] URINALYSIS W/O SPECIFIC [id number] 14:34:00 Test Item Value Reference Range Interpretation Comments POCT PH U (test code = 3254) n/a 5-8 POCT U LEUK EST (test code = 3263) n/a Negative - Negative POCT U NIT (test code = 3262) n/a Negative - Negative POCT U PROT (test code = 3259) neg Negative - Negative POCT U GLU (test code = 3256) neg Negative - Negative POCT U KETONE (test code = 3258) n/a Negative - Negative POCT U BLD (test code = 3257) n/a Negative - Negative [facility] URINALYSIS W/O SPECIFIC [id number] 14:34:00 Test Item Value Reference Range Interpretation Comments POCT PH U (test code = 3254) n/a 5-8 POCT U LEUK EST (test code = 3263) n/a Negative - Negative POCT U NIT (test code = 3262) n/a Negative - Negative POCT U PROT (test code = 3259) neg Negative - Negative POCT U GLU (test code = 3256) neg Negative - Negative POCT U KETONE (test code = 3258) n/a Negative - Negative POCT U BLD (test code = 3257) n/a Negative - Negative [facility]/O SPECIFIC [id number] 14:34:00 Test Item Value Reference Range Interpretation Comments POCT PH U (test code = 3254) n/a 5-8 POCT U LEUK EST (test code = 3263) n/a Negative - Negative POCT U NIT (test code = 3262) n/a Negative - Negative POCT U PROT (test code = 3259) neg Negative - Negative POCT U GLU (test code = 3256) neg Negative - Negative POCT U KETONE (test code = 3258) n/a Negative - Negative POCT U BLD (test code = 3257) n/a Negative - Negative [facility]/O SPECIFIC [id number] 20:46:00 Test Item Value Reference Range Interpretation Comments POCT PH U (test code = 3254) n/a 5-8 POCT U LEUK EST (test code = n/a Negative - Negative 3263) POCT U NIT (test code = 3262) n/a Negative - Negative POCT U PROT (test code = 3259) negative Negative - Negative POCT U GLU (test code = 3256) negative Negative - Negative POCT U KETONE (test code = 3258) n/a Negative - Negative POCT U BLD (test code = 3257) n/a Negative - Negative [facility]
--- NOTE | 2022-10-20 17:13 | EDPHYS ---
Physician Documentation [facility] Name: Pauline Martin Age: 32 yrs Sex: Female : 1990 Arrival Date: 10/20/2022 Time: 15:54 Bed 12 Private MD: ED Physician Augusto Beckford HPI: 10/20 16:41 This 32 yrs old Black Female presents to ER via Ambulatory with complaints of Cold kb Symptoms. 16:41 The patient or guardian reports flu symptoms, malaise. Onset: The symptoms/episode kb began/occurred today. Severity of symptoms: At their worst the symptoms were very mild, in the emergency department the symptoms are unchanged. Modifying factors: The symptoms are alleviated by nothing, the symptoms are aggravated by nothing. Associated signs and symptoms: The patient has no apparent associated signs or symptoms. The patient has not experienced similar symptoms in the past. The patient has not recently seen a physician. Pt presents for scratchy throat and malaise that started today. Boyfriend just tested positive for covid. Historical: - Allergies: 16:10 No Known Allergies; cm10 - Home Meds: 16:10 None [Active]; cm10 - PMHx: 16:10 None; cm10 - PSHx: 16:10 Tonsillectomy; cm10 - Immunization history:: Adult Immunizations unknown. - Social history:: Smoking status: Patient denies any tobacco usage or history of. ROS: 16:41 Constitutional: Negative for fever, chills, and weight loss. kb 16:41 Constitutional: Positive for malaise. 16:41 ENT: Positive for sore throat. 16:41 All other systems are negative. Exam: 16:41 Constitutional: This is a well developed, well nourished patient who is awake, alert, kb and in no acute distress. Head/Face: Normocephalic, atraumatic. ENT: Moist Mucous membranes Cardiovascular: Regular rate and rhythm with a normal S1 and S2. No gallops, murmurs, or rubs. No pulse deficits. Respiratory: Respirations even and unlabored. No increased work of breathing. Talking in full sentences Abdomen/GI: Soft, non-tender. No distention Skin: Warm, dry with normal turgor. Normal color. MS/ Extremity: Pulses equal, no cyanosis. Neurovascular intact. Full, normal range of motion. Neuro: Awake and alert, GCS 15, oriented to person, place, time, and situation. Moves all extremities. Normal gait. Vital Signs: 16:08 BP 149 / 96; Pulse 84; Resp 18; Temp 97.6; Pulse Ox 100% ; Weight 99.79 kg; Height 5 cm10 ft. 4 in. ; Pain 0/10; 16:08 Body Mass Index 37.76 (99.79 kg, 162.56 cm) cm10 16:08 Pain Scale: Adult cm10 MDM: 16:03 Patient medically screened. kb 16:41 Differential diagnosis: covid, flu, uri, strep. Data reviewed: vital signs, nurses kb notes. Counseling: I had a detailed discussion with the patient and/or guardian regarding: the historical points, exam findings, and any diagnostic results supporting the discharge/admit diagnosis, lab results, the need for outpatient follow up, a family practitioner, to return to the emergency department if symptoms worsen or persist or if there are any questions or concerns that arise at home. 10/20 16:09 Order name: SARS-COV-2 RT PCR; Complete Time: 17:11 kb Administered Medications: No medications were administered Disposition: 19:08 Co-signature as Attending Physician, Augusto Beckford DO I was immediately available on-site ms3 in the Emergency Department for consultation in the care of the patient. Disposition Summary: 10/20/22 17:12 Discharge Ordered Location: Home kb Condition: Stable kb Diagnosis - Person with feared health complaint in whom no diagnosis is made kb Followup: kb - With: Emergency Department - When: As needed - Reason: Worsening of condition Followup: kb - With: Private Physician - When: 2 - 3 days - Reason: Recheck today's complaints, Continuance of care, Re-evaluation by your physician Forms: - Medication Reconciliation Form kb - Thank You Letter kb - Antibiotic Education kb - Prescription Opioid Use kb - Patient Portal Instructions kb Signatures: Dispatcher [employer] Cecilia Rivers FNP-C FNP-Augusto Cevallos DO DO ms3 Parris Gerber, RN RN cm10
--- NOTE | 2022-10-20 17:13 | ER ---
Nurse's Notes [facility] Name: Pauline Martin Age: 32 yrs Sex: Female : 1990 Arrival Date: 10/20/2022 Time: 15:54 Bed 12 Private MD: Diagnosis: Person with feared health complaint in whom no diagnosis is made Presentation: 10/20 16:08 Chief complaint: Patient states: sore throat onset today. Pt states that her boyfriend fredrick tested positive for COVID today. Coronavirus screen: Vaccine status: Patient reports being unvaccinated. Ebola Screen: Patient denies travel to an Ebola-affected area in the 21 days before illness onset. No symptoms or risks identified at this time. Initial Sepsis Screen: Does the patient meet any 2 criteria? No. Patient's initial sepsis screen is negative. Does the patient have a suspected source of infection? No. Patient's initial sepsis screen is negative. Risk Assessment: Do you want to hurt yourself or someone else? Patient reports no desire to harm self or others. Onset of symptoms was October 20, 2022. 16:08 Method Of Arrival: Ambulatory cm10 16:08 Acuity: ELSA 4 cm10 Historical: - Allergies: 16:10 No Known Allergies; cm10 - Home Meds: 16:10 None [Active]; cm10 - PMHx: 16:10 None; cm10 - PSHx: 16:10 Tonsillectomy; cm10 - Immunization history:: Adult Immunizations unknown. - Social history:: Smoking status: Patient denies any tobacco usage or history of. Screenin:20 [facility] ED Fall Risk Assessment (Adult) Score/Fall Risk Level 0 - 2 = Low Risk hb Oriented to surroundings, Maintained a safe environment. Abuse screen: Denies threats or abuse. Denies injuries from another. Nutritional screening: No deficits noted. Tuberculosis screening: No symptoms or risk factors identified. Assessment: 16:20 General: Appears in no apparent distress. Behavior is calm, cooperative. Pain: Denies hb pain. Neuro: Level of Consciousness is awake, alert, obeys commands, Oriented to person, place, time, situation. Cardiovascular: Patient's skin is warm and dry. Respiratory: Respiratory effort is even, unlabored, Respiratory pattern is regular, symmetrical. Vital Signs: 16:08 BP 149 / 96; Pulse 84; Resp 18; Temp 97.6; Pulse Ox 100% ; Weight 99.79 kg; Height 5 cm10 ft. 4 in. ; Pain 0/10; 16:08 Body Mass Index 37.76 (99.79 kg, 162.56 cm) cm10 16:08 Pain Scale: Adult cm10 ED Course: 15:59 Patient arrived in ED. kj1 16:03 Cecilia Rose FNP-C is PSYCHIATRIC. kb 16:03 Augusto Beckford DO is Attending Physician. kb 16:09 Triage completed. cm10 16:10 Arm band placed on. cm10 16:14 SARS-COV-2 RT PCR Sent. cm10 16:20 Patient has correct armband on for positive identification. Provided Education on: . hb 16:20 SARS-COV-2 RT PCR Sent. hb 16:20 No provider procedures requiring assistance completed. Patient did not have IV access hb during this emergency room visit. Administered Medications: No medications were administered Medication: 16:20 VIS not applicable for this client. hb Outcome: 17:12 Discharge ordered by . kb 17:23 Patient left the ED. ll1 Signatures: Cecilia Rose FNP-C FNP-Ckb Baxter, Heather, RN RN Muriel Rose kj1 Mel Hicks, RN RN ll1 Parris Gerber, RN RN 10
[2022-10-20 17:28] VITALS: BP 149/96; TEMP 97.6; O2SAT 100
== END 2022-10-20 17:23 | disposition home or self-care (01) ==
LOC: ER 15:54
DX: Z71.1 Person with feared health complaint in whom no diagnosis is made (principal); Z20.822 Contact with and (suspected) exposure to COVID-19
CPT/HCPCS: 87635; 99282